=== PATIENT | male | born 1960 | race Asian ===

== ENCOUNTER 2023-04-14 08:31 | Outpatient (AMB) | payer OTHER, SELFPAY ==
--- NOTE | 2023-04-14 08:35 | MHC.PC.OV ---
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 Intake Note: pt is here to establish care, requesting physical exam [place] Bottom Maker Required: No Accompanied by: Self / Same As Patient Allergies No Known Allergies Allergy (Verified 04/14/23 08:53) Medication List - Last Reconciled 04/14/23 by KURT Mena No Known Home Meds Tobacco use date assessed: 04/14/23 Fall risk assessment: No Falls in past year Last assessed Fall Risk: 04/14/23 Dental Screening Dental Screen Date: 04/14/23 Did you have a dental visit in the last 12 months?: No Did you have a dental problem in the last 6 months where you did not have access to dental care?: No Was dental information given to patient?: Patient declined HPI HPI Comments History of Present Illness Details Patient is a 62-year-old male here to establish care. The patient has no significant past medical history but he has not seen a primary care physician over 15 years. Will obtain patient's immunization status. Patient is due for colonoscopy, will refer. Will draw fasting labs. [facility] Surgical History No pertinent past surgical history Family History Mother No problems noted. Father No problems noted. Social History Housing: House Alcohol intake: current Alcohol intake frequency: does not drink Patient Tobacco Use Status: Never used Tobacco e-Cigarette/Vaping Use: Never Used Use of substances other than those prescribed or required for medical reasons: No service: No Current occupational status: unemployed Cognitive needs: No Hearing needs: No Vision needs: Yes Questionnaire PHQ-9 Over the last 2 weeks, how often have you been bothered by any of the following problems? 1. Little interest or pleasure in doing things: not at all 2. Feeling down, depressed, or hopeless: not at all 3. Trouble falling or staying asleep, or sleeping too much: not at all 4. Feeling tired or having little energy: not at all 5. Poor appetite or overeating: not at all 6. Feeling bad about yourself - or that you are a failure or have let yourself or your family down: not at all 7. Trouble concentrating on things, such as reading the newspaper or watching television: not at all 8. Moving or speaking so slowly that other people could have noticed. Or the opposite - being so fidgety or restless that you have been moving around a lot more than usual: not at all 9. Thoughts that you would be better off or of hurting yourself in some way: not at all Total score: 0 Depression Screening Interpretation: Negative Depression Screening Done: Yes 26621 - PHQ-9 Billing: Yes Source: Developed by Drs. Mark Greenfield, Marely Hunter, Víctor Alcantar and colleagues, with an educational anatoliy from [employer]. Thrive Questionnaire Date Thrive assessed: 04/14/23 I am a: Patient What is your living situation today?: I have a steady place to live Within the past 12 months, did the food you bought not last and you didn't have the money to get more?: Never true Within the past 12 months, did you worry whether your food would run out before you got money to buy more?: Never true Do you have trouble paying for medicines?: No Do you have trouble getting transportation to medical appointments?: No Do you have trouble paying your heating and electricity bill?: No Do you have trouble taking care of your child, family member or friend?: No Do you have trouble with day-to-day activities such as bathing, preparing meals, shopping, managing finances, etc.?: No Are you currently unemployed and looking for a job?: No Are you interested in more education?: No Please select the resources that you would like help with: None Currently or been in a relationship where the following occur: no concerns reported THRIVE Score: 0 AUDIT C Alcohol Use Questionnaire (AUDIT-C) 1. How often do you have a drink containing alcohol?: Never 3. How often do you have six or more drinks on one occasion?: Never Total Score: 0 Score Reviewed/Action Taken: Yes TRISHA-7 AMB Questionnaire TRISHA-7 Date TRISHA - 7 assessed: 04/14/23 Feeling nervous, anxious, or on edge: 0 = Not at all Not being able to stop or control worryin = Not at all Worrying too much about different things: 0 = Not at all Trouble relaxin = Not at all Being so restless that it is hard to sit still: 0 = Not at all Becoming easily annoyed or irritable: 0 = Not at all Feeling afraid as if something awful might happen: 0 = Not at all Total TRISHA-7 score (0-4 normal; 5-9 mild; 10-14 moderate; 15-21 severe): 0 Source: Developed by Drs. Mark Greenfield, Marely Hunter, Víctor Alcantar and colleagues, with an educational anatoliy from [employer]. TRISHA-7 Assessment Billing TRISHA-7 Assessment Tool: TRISHA-7 Assessment 58346 Review of Systems Const Details: Constitutional : No Weight loss, No Fever, No Chills, No Fatigue, No Malaise ENT/Mouth : No sore throat, No Rhinorrhea. Admits occasional difficultly swallowing. Eyes: No Eye Pain, No Swelling, No Redness Cardiovascular : No Chest Pain, No SOB, No Dyspnea on Exertion, No Orthopnea, No Edema, No Palpitations Respiratory : No Cough, No Sputum, No Wheezing Gastrointestinal : No Nausea, No Vomiting, No Diarrhea, No Constipation, No abdominal Pain, No Hematochezia, No Melena Genitourinary : No Dysuria, No Urinary Frequency, No Hematuria, Musculoskeletal : No joint pain, No Myalgias, No Joint Swelling Skin : No Skin Lesions, No rash, Admits sking looks more yellow than usual. Neuro : No Weakness, No Numbness, No Dizziness, No Headache Psych : No Anxiety/Panic, No Depression Heme/Lymph: No Bruising, No Bleeding,No Lymphadenopathy Endocrine : No Polyuria, No Polydipsia All other systems reviewed and are negative Physical exam (Primary Care) Vital Signs: Last Vital Signs Pulse 67 04/14/23 08:41 BP 106/62 04/14/23 08:41 Pulse Ox 98 04/14/23 08:41 Oxygen Delivery Method Room Air 04/14/23 08:41 BMI result Body Mass Index 23.3 Tobacco/Smoking Status: Tobacco use Status Tobacco use date assessed 04/14/23 04/14/23 08:36 Patient Tobacco Use Status Never used Tobacco 04/14/23 08:47 e-Cigarette/Vaping Use Never Used 04/14/23 08:47 PHQ-9: PHQ-9 Score PHQ-9: Total score 0 04/14/23 09:05 Depression Screening Interpretation: Negative Thrive Assessment: Date of Thrive Assessment Date Thrive assessed 04/14/23 04/14/23 08:50 Currently or been in a relationship where the following occur: no concerns reported Const Other: Appearance: Alert.? Oriented X3.? No acute distress.? Head: Normocephalic, atraumatic, Eyes: Pupils equal, round and reactive to light.? ENT: + Post nasal drip. TM intact and pearly oquendo. Neck: Normal inspection.? Neck supple.?Full ROM CVS: Normal heart rate and rhythm.? Pulses normal.?+ systolic murmur. Respiratory: No respiratory distress.? Breath sounds normal.? Abdomen: Soft and nontender.? Skin: Skin warm and dry.? Appears Jaundice.? Normal skin turgor.? Extremities: No lower extremity edema.? No calf ttp. 5/5 strength to bilateral upper and lower extremities Back: No midline tenderness, no C-spine tenderness, full range of motion, no CVA tenderness bilaterally Neuro: Oriented X 3.? No motor deficit.? No sensory deficit. CN 2-12 intact Assessment and Plan Assessment & Plan (1) Systolic murmur: Comment: Patient was in office EKG, will get referral to echocardiogram. Will follow-up with results and refer to Cardiology if needed. Patient has no symptoms at this time Code(s): R01.1 - Cardiac murmur, unspecified (2) Difficulty swallowing: Comment: Patient states that he occasionally has difficulty swallowing and it feels like food can get stuck in his throat. Will refer to GI for evaluation. Code(s): R13.10 - Dysphagia, unspecified Qualifiers: Dysphagia type: unspecified Qualified Code(s): R13.10 - Dysphagia, unspecified (3) Onychomycosis: Comment: Will give patient topical fungal cream. Patient will follow-up if no improvement. Code(s): B35.1 - Tinea unguium Plan: Take your medications as prescribed. If you were prescribed antibiotics today, it is important that you take your medication to their entirety, do not skip any doses, do not finish them early. Follow-up with your primary care provider this week. Return to the emergency department with new or worsening symptoms. Such as fevers, chills, chest pain, shortness of breath, nausea, vomiting, dizziness, headache, vision changes, lethargy In case of emergency call 911 (4) Jaundice: Code(s): R17 - Unspecified jaundice (5) Right bundle branch block: Comment: EKG in office had right bundle branch block. 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 Code(s): I45.10 - Unspecified right bundle-branch block Plan Patient will follow-up with physical exam Orders: Orders Lipid Panel Today Z13.220 - Encounter for screening for lipoid disorders Vitamin B6 Today Z13.21 - Encounter for screening for nutritional disorder Hemoglobin A1c Today Z13.1 - Encounter for screening for diabetes mellitus Hepatitis A,B,C Profile Today R17 - Unspecified jaundice Comprehensive Met. Panel Today Z91.89 - Other specified personal risk factors, not elsewhere classified Complete Blood Count Auto Diff Today Z13.0 - Encounter for screening for diseases of the blood and blood-forming organs and certain disorders involving the immune mechanism Vitamin D 25-OH (D2 and D3) Today Z13.21 - Encounter for screening for nutritional disorder Vitamin B12 Today Z13.21 - Encounter for screening for nutritional disorder UA CC w/rflx Micro + Cult Today Z13.89 - Encounter for screening for other disorder TSH reflex Free T4 Today Z13.29 - Encounter for screening for other suspected endocrine disorder PSA,Total (Free>4and<10) Today Z12.5 - Encounter for screening for malignant neoplasm of prostate AMB EKG-In Office Today R01.1 - Cardiac murmur, unspecified CA echo transthoracic complete Today R01.1 - Cardiac murmur, unspecified Referrals Gastroenterology Referral R13.10 - Dysphagia, unspecified, Z12.11 - Encounter for screening for malignant neoplasm of colon Cardiology Referral I45.10 - Unspecified right bundle-branch block Medications: New efinaconazole 10% 1 appl topical DAILY 4 mL 0RF 48 weeks fluticasone propionate 50 mcg/actuation (Allergy Relief (fluticasone)) administer into each nostril 2 sprays intranasal DAILY 16 grams 0RF Coding Level of Care Code New Pt Level 3 (54780) Diagnoses Systolic murmur R01.1 Dysphagia, unspecified type R13.10 Dysphagia type: unspecified Onychomycosis B35.1 Jaundice R17 Right bundle branch block I45.10 Additional Codes TRISHA-7 Assessment Billing - TRISHA-7 Assessment Tool: TRISHA-7 Assessment 72261 ([id number]) Time Spent (min) 35
[2023-04-14 08:41] VITALS: BP 106/62; PULSE 67; O2SAT 98; BMI 23.3
== END 2023-04-14 10:21 | disposition home or self-care (01) ==
PROVIDERS: PCP Nurse Practitioner Primary Care; Visit Provider Nurse Practitioner Primary Care
DX: R01.1 Cardiac murmur, unspecified (principal); R13.10 Dysphagia, unspecified; B35.1 Tinea unguium; R17 Unspecified jaundice; I45.10 Unspecified right bundle-branch block
CPT/HCPCS: 93000; 99204

== ENCOUNTER 2023-04-17 10:13 | Outpatient (REF) | payer OTHER, SELFPAY ==
[2023-04-17 11:47] LABS: MANUAL DIFF FLAG NO
[2023-04-17 11:59] LABS: Basophils Percent Auto 0.5 % (0-2); Eosinophils Percent Auto 0.6 % (0-4); Imm Gran Abs Auto 0.03 X10*3/uL (0.00-0.03); Imm Gran Pct Auto 0.5 % (0.0-0.4); Lymphocytes Percent Auto 31.3 % (20-40); Mean Corpuscular HGB Conc 25.5 g/dl (31.0-36.0); Mean Corpuscular Hemoglobin 16.1 pg (27.0-33.0); Mean Platelet Volume 9.2 fL (9.4-12.4); Monocytes Absolute Auto 0.5 X10*3/uL (0.1-1.2); Monocytes Percent Auto 7.9 % (2-11); NRBC Pct Auto 0.6 /100WBC (0.0-0.2); Neutrophils Absolute Auto 3.8 x10*3/uL (2.0-8.3); Neutrophils Percent Auto 59.2 % (45-73); Platelet Count 391 X10*3/uL (160-400); Red Blood Count 3.05 X10*6/uL (4.60-5.80); Red Cell Distribution Width 22.1 % (11.0-16.0); White Blood Count 6.4 X10*3/uL (4.8-10.8)
[2023-04-17 12:34] LABS: Alanine Aminotransferase 14 U/L (0-40); Alkaline Phosphatase 47 U/L (39-117); Anion Gap 11 (12-20); Aspartate Amino Transferase 14 U/L (5-37); Bilirubin Total 0.4 mg/dL (0.0-1.0); Blood Urea Nitrogen 16 mg/dL (9-16); Calcium 8.8 mg/dL (8.4-10.2); Carbon Dioxide 24 mmol/L (22-29); Chloride 107 mmol/L (96-108); Cholesterol 116 mg/dL (<200); Estimated Glomerular Filt Rate > 60; Glucose Random 93 mg/dL (60-115); HDL Cholesterol 43 mg/dL (>40); LDL Cholesterol Calculated 67 mg/dL (<100); Potassium 4.1 mmol/L (3.3-5.1); Sodium 138 mmol/L (135-145); Total Protein 7.9 g/dL (6.5-8.0); Triglycerides 34 mg/dL (<150)
[2023-04-17 12:37] LABS: TSH reflex Free T4 1.22 uIU/mL (0.32-4.0)
[2023-04-17 12:38] LABS: Hematocrit 19.2 % (42.0-52.0); Hemoglobin 4.9 g/dl (14.0-18.0); PSA,Total (Free>4and<10) 5.66 ng/mL (0.00-4.00)
[2023-04-17 12:43] LABS: Vitamin B12 538 pg/mL (200-900)
[2023-04-17 13:36] LABS: Appearance Urine Clear; Color Urine Yellow; Glucose Urine UA Negative (Negative); Leukocyte Esterase Urine Negative (Negative); Nitrite Urine Negative (Negative); PH 5.5 (5.0-9.0); Urine Blood Negative (Negative); Urine Ketones Negative (Negative); Urine Protein Negative (Neg-Trace)
[2023-04-19 08:59] LABS: HBsAGNum1 0.38 S/CO (0.00-0.99); Hepatitis A Antibody IgM 0.36 Index (0-0.79); Hepatitis B Surface Antigen Negative (Negative); ~HepC Num1 0.14 S/CO (0.00-0.79); ~Hepatitis A Antibody IgM Nonreactive (Nonreactive); ~Hepatitis B Surface Antibody REACTIVE (Nonreactive); ~Hepatitis C Antibody Nonreactive (Nonreactive)
[2023-04-19 09:50] LABS: HBc Num2 4.14 S/CO
[2023-04-19 09:51] LABS: HBc Num3 3.96 S/CO; Hepatitis B Core Antibody Reactive (Nonreactive)
[2023-04-19 10:28] LABS: Free Prostate Spec Ag 0.7 ng/mL; Percent Free Prostate Spec Ag 11 % (calc) (>25); Prostate Specific Ag Total 6.6 ng/mL (< OR = 4.0)
[2023-04-21 12:18] LABS: Vitamin D 25-OH, D2 <4 ng/mL; Vitamin D 25-OH, D3 11 ng/mL; Vitamin D 25-OH, Total 11 ng/mL (30-100)
[2023-04-21 14:34] LABS: Vitamin B6 12.1 ng/mL (2.1-21.7)
== END 2023-04-17 10:14 | disposition home or self-care (01) ==
LOC: HO.HMGCLDS 10:13
PROVIDERS: PCP Nurse Practitioner Primary Care; Visit Provider Nurse Practitioner Primary Care
DX: Z13.0 Encounter for screening for diseases of the blood and blood-forming organs and certain disorders involving the immune mechanism (principal); Z13.21 Encounter for screening for nutritional disorder; Z12.5 Encounter for screening for malignant neoplasm of prostate; Z13.220 Encounter for screening for lipoid disorders; Z13.89 Encounter for screening for other disorder; Z13.29 Encounter for screening for other suspected endocrine disorder; R17 Unspecified jaundice; Z91.89 Other specified personal risk factors, not elsewhere classified
CPT/HCPCS: 36415; 80053; 80061; 81003; 82306; 82607; 83036; 84153; 84154; 84207; 84443; 85025; 86704; 86706; 86709; 86803; 87340

== ENCOUNTER 2023-04-18 12:43 | Inpatient (IN) | payer OTHER, SELFPAY ==
[2023-04-18] VITALS (12 sets, daily range): BP systolic 115–138; BP diastolic 48–71; PULSE 65–127; RESP 16–24; TEMP 36.3–37.2; O2SAT 99–100; BMI 20.5
--- NOTE | ~2023-04-18 | CT_ITS ---
EXAMINATION: CT CHEST WITH CONTRAST CLINICAL INFORMATION: Anemia and dysphagia COMPARISON: None available. TECHNIQUE: Multidetector volumetric CT imaging of the chest was obtained after the administration of 85 mL of Omnipaque 350 intravenous contrast without immediate adverse reactions. Axial MIP volume rendering provided. Sagittal and coronal reformatted images were obtained. This CT examination was performed using dose optimization techniques as appropriate, variously including the following: *Automated exposure control *Adjustment of mA and/or kV according to patient size (this includes techniques or standardized protocols for targeted exams where dose is matched to indication/reason for exam; i.e. extremities or head) *Use of iterative reconstruction technique DLP: 187 mGy-cm FINDINGS: LUNGS: Limited due to motion artifact. Subsegmental atelectasis in the lingula and left lower lobe. MEDIASTINUM: Enlarged heart. Mild coronary artery calcification. Small pericardial effusion. No enlarged hilar or mediastinal lymph nodes. The esophagus is normal-appearing. PLEURA: There is no pleural effusion. No pleural mass or thickening. AXILLA: No lymphadenopathy. OSSEOUS STRUCTURES: Degenerative changes of the spine. CT/CT chest w IV con IMPRESSION: Limited exam due to respiratory motion artifact. Enlarged heart and small pericardial effusion. Subsegmental atelectasis at the left lung base. Normal-appearing esophagus. Fleischner guidelines were followed.
--- NOTE | ~2023-04-18 | CT_ITS ---
EXAMINATION: CT ABDOMEN AND PELVIS WITH CONTRAST CLINICAL INFORMATION: Anemia. Concern for gastric or other mass. COMPARISON: None available. TECHNIQUE: Multidetector volumetric images were obtained from the superior aspect of the liver through the pubic symphysis following administration 85 mL of Omnipaque 350 intravenous contrast. Sagittal and coronal reformatted images were obtained on the technologist's workstation. Oral contrast: Yes This CT examination was performed using dose optimization techniques as appropriate, variously including the following: *Automated exposure control *Adjustment of mA and/or kV according to patient size (this includes techniques or standardized protocols for targeted exams where dose is matched to indication/reason for exam; i.e. extremities or head) *Use of iterative reconstruction technique DLP: 390 mGy-cm FINDINGS: LUNG BASES: The visualized lung bases are unremarkable. LIVER, GALLBLADDER, AND BILIARY TREE: The liver is normal in size, shape, and attenuation. There is an peripherally enhancing lesion in the posterior segment of the right lobe liver measuring 5 cm. Appearance is questionable hemangioma there are small subcentimeter low-attenuation liver lesions too small to definitively characterize but may represent small cysts. The gallbladder is contracted. There is no biliary duct dilatation. PANCREAS: Unremarkable. SPLEEN: Unremarkable. ADRENAL GLANDS: Unremarkable. KIDNEYS AND URETERS: The kidneys are normal in size, shape, and attenuation. No hydronephrosis, hydroureter, or calculi seen. Left renal cysts. No imaging follow-up recommended. No perinephric stranding. BLADDER: Prostate gland protrudes into the base of the bladder. Bladder otherwise unremarkable. GASTROINTESTINAL TRACT: Stool throughout the colon suggestive of mild constipation. The small and large bowel are otherwise unremarkable. The appendix is normal. ABDOMINAL WALL: No significant hernia is appreciated. LYMPH NODES: Normal. VASCULAR: Normal PELVIC VISCERA: Slightly enlarged prostate gland that protrudes into the base of bladder. OSSEOUS STRUCTURES: Degenerative changes spine. CT/CT abdomen pelvis w IV con IMPRESSION: Mild constipation. 5 cm liver lesion, question representing a hemangioma. Follow-up liver MRI recommended. Slightly enlarged prostate gland that protrudes into the base of the bladder. Fleischner guidelines were followed.
--- NOTE | 2023-04-18 13:12 | PC.NURSE ---
Patient taken from waiting room d/t call from OP labs regarding low lab values. Patient placed on stretcher, tele leads placed, IV and labs drawn. Patient primarily Cantonese speaking, currently speaking to doctor via virtual Cantonese paraprofessional interpreter.
[2023-04-18 13:15] LABS: Basophils Absolute Auto 0.1 X10*3/uL (0.0-0.2); Basophils Percent Auto 0.9 % (0-2); Eosinophils Absolute Auto 0.1 X10*3/uL (0.0-0.4); Eosinophils Percent Auto 1.1 % (0-4); Imm Gran Abs Auto 0.02 X10*3/uL (0.00-0.03); Imm Gran Pct Auto 0.4 % (0.0-0.4); Lymphocytes Absolute Auto 1.7 X10*3/uL (1.2-4.9); Lymphocytes Percent Auto 31.4 % (20-40); Mean Corpuscular HGB Conc 25.6 g/dl (31.0-36.0); Mean Corpuscular Hemoglobin 15.9 pg (27.0-33.0); Mean Platelet Volume 8.3 fL (9.4-12.4); Monocytes Absolute Auto 0.5 X10*3/uL (0.1-1.2); NRBC Pct Auto 0.7 /100WBC (0.0-0.2); Neutrophils Absolute Auto 3.1 x10*3/uL (2.0-8.3); Neutrophils Percent Auto 57.2 % (45-73); Platelet Count 356 X10*3/uL (160-400); Red Blood Count 2.77 X10*6/uL (4.60-5.80); Red Cell Distribution Width 22.1 % (11.0-16.0); White Blood Count 5.5 X10*3/uL (4.8-10.8)
[2023-04-18 13:18] LABS: Mean Corpuscular Volume 62.1 fL (80.0-98.0)
[2023-04-18 13:20] LABS: Hemoglobin 4.4 g/dl (14.0-18.0)
[2023-04-18 13:21] LABS: Hematocrit 17.2 % (42.0-52.0); INTERNATIONAL NORM RATIO 1.1 (0.9-1.1); Prothrombin Time 13.3 SEC (11.1-13.3)
--- NOTE | 2023-04-18 13:22 | ED_ITS ---
HPI - General Adult General Chief complaint: Recheck/Abnormal Lab/Rx Stated complaint: Abnormal Labs Sent by Dr Angulo Seen by Provider: 04/18/23 12:47 Source: patient, family () and information technology consultant (Cantonese Georgian) History of Present Illness HPI narrative: 62-year-old male who is referred in by his primary care doctor for abnormal labs. Patient states that he and his have worked in the [employer] business for proximally 7 years here in [place], he does not have any primary care doctor until recently, denies any prescription medications/alcohol/smoking history and denies any cough or night sweats but states he has had some unintentional weight loss and denies any melena/hematochezia and has never had a colonoscopy. Patient reports that for the past 6 months he has had increasing difficulty with swallowing for solid foods but this is not an issue with soft foods or liquids at this time. Patient denies any early satiety/muscle aches/bone aches and he denies any shortness of breath but states he has had some dizziness. He denies any abdominal pain at this time. Related Data Home Medications Medication Instructions Recorded Confirmed No Known Home Meds 04/18/23 04/18/23 Allergies Allergy/AdvReac Type Severity Reaction Status Date / Time No Known Allergies Allergy Verified 04/14/23 08:53 Review of Systems 2 Review of Systems: Pertinent positives and negatives as stated in HPI COUNTS INCLUDE 234 BEDS AT THE [facility] Past Medical History Source: nursing notes reviewed Medical History (Updated 04/18/23 @ 16:13 by Freda Jones MD) No pertinent past medical history Surgical History No pertinent past surgical history Family History Family History Mother No problems noted. Father No problems noted. Social History Social History Housing: House Alcohol intake: current Alcohol intake frequency: does not drink Patient Tobacco Use Status: Never used Tobacco Smoked in Last 30 Days: No e-Cigarette/Vaping Use: Never Used Use of substances other than those prescribed or required for medical reasons: No Advance Directives: No Advance Directives Information Provided: Yes service: No Current occupational status: unemployed Cognitive needs: No Hearing needs: No Vision needs: Yes Physical Exam ED Vital Signs: Vital Signs - 24 hr 04/18/23 13:08 04/18/23 13:27 04/18/23 14:26 Temperature 98.3 F 97.7 F Pulse Rate 89 92 97 Respiratory Rate 24 H 16 16 Blood Pressure 134/48 L 135/71 Pulse Oximetry 100 100 Oxygen Delivery Method Room Air Room Air 04/18/23 14:42 Temperature 97.4 F Pulse Rate 102 H Respiratory Rate 24 H Blood Pressure 138/71 Pulse Oximetry Oxygen Delivery Method BMI result Body Mass Index 20.5 VITAL SIGNS: Reviewed. GENERAL: Well developed, well nourished, in no acute distress. HEAD: Normocephalic/atraumatic EYES: PERRLA, EOMI, pale conjunctiva EARS: Ext canals without abnormality NOSE: Nares patent bilateral OROPHARYNX: no oral lesions noted, posterior pharynx clear NECK: Supple, no adenopathy LUNGS: Normal breath sounds. No adventitious sounds or accessory muscle use. SpO2<100> CARDIOVASCULAR: Regular rate and rhythm without noted murmurs ABDOMEN: Soft, non-tender, non-distended with bowel sounds. Anorectal: There are no masses/tags/fissures, scant stool in the rectal vault, no overt enlarged prostate noted and no anorectal masses appreciated, good rectal tone MUSCULOSKELETAL: No tenderness, deformities, or effusions noted on gross inspection. EXTREMITIES: No cyanosis, clubbing or edema. SKIN: Inspection of the skin reveals no rashes, +pallor NEUROLOGIC: Alert and oriented x 4. Strength and sensation to light touch were grossly intact x 4. Medications Administered Discontinued Medications Generic Name Dose Route Start Last Admin Trade Name Freq PRN Reason Stop Dose Admin Sodium Chloride 100 mls @ 100 mls/hr 04/18/23 12:48 04/18/23 14:49 Ns IV 04/18/23 13:47 100 mls/hr ONCE ONE Administration Iohexol 85 ml 04/18/23 14:20 04/18/23 14:20 Iohexol 350 Mg/Ml 100 Ml Infus..Btl IV 04/18/23 14:21 85 ml ONCE ONE Administration Medical Decision Making Medical Decision Making MDM Narrative: 62-year-old male with history and clinical presentation, DDX: Although no family history GI cancers, given the degree of anemia that patient is presenting with with associated dizziness as well as weight loss and recent dysphagia raising concerns for possible gastro Ca/esophageal. Reviewed all investigations and hematologic indices negative for leukocytosis or left shift there is a significant microcytic anemia and no thrombocytopenia. Coagulation studies are within normal limits. Chemistries indices do not demonstrates an BEVERLY or electrolyte/liver enzyme derangements. Guaiac negative for stool. On review of patient's outpatient lab work he does have hepatitis series pending from 04/17/2023. CT of the chest significant for small pericardial effusion and no grossly identifiable esophageal pathology. CT scan of the abdomen pelvis shows mild constipation with a 5 cm liver lesion that radiology feels is consistent with likely hemangioma and also identified enlarged prostate protruding into the base of the bladder. These findings were communicated with the inpatient hospitalist team. 1341: I discussed this case with inpatient hospitalist who accepts admission. Differential Diagnosis Differential Diagnoses: The differential diagnosis associated with the presentation includes Please see the discussion above Admission/Observation Consideration of admission/observation: Escalation of care including admission/observation considered Please see the discussion above Consult Healthcare Provider Management of the patient was discussed with: Hospitalist Please see the discussion above Lab Data MDM Lab Attestation statement: I reviewed the patient's lab results. Please see the discussion above 04/18/23 13:06 04/18/23 13:06 Labs: Lab Results 04/18/23 04/18/23 Range/Units 13:06 13:21 WBC 5.5 (4.8-10.8) X10*3/uL RBC 2.77 L (4.60-5.80) X10*6/uL Hgb 4.4 L* (14.0-18.0) g/dl Hct 17.2 L* (42.0-52.0) % MCV 62.1 L (80.0-98.0) fL MCH 15.9 L (27.0-33.0) pg MCHC 25.6 L (31.0-36.0) g/dl RDW 22.1 H (11.0-16.0) % Plt Count 356 (160-400) X10*3/uL MPV 8.3 L (9.4-12.4) fL Immature Gran % (Auto) 0.4 (0.0-0.4) % Neut % (Auto) 57.2 (45-73) % Lymph % (Auto) 31.4 (20-40) % Dare % (Auto) 9.0 (2-11) % Eos % (Auto) 1.1 (0-4) % Baso % (Auto) 0.9 (0-2) % Lymph # (Auto) 1.7 (1.2-4.9) X10*3/uL Dare # (Auto) 0.5 (0.1-1.2) X10*3/uL Eos # (Auto) 0.1 (0.0-0.4) X10*3/uL Baso # (Auto) 0.1 (0.0-0.2) X10*3/uL Abs Immat Gran (auto) 0.02 (0.00-0.03) X10*3/uL Absolute Neuts (auto) 3.1 (2.0-8.3) x10*3/uL Absolute Nucleated RBC 0.040 H (0.0-0.012) X10*3/uL Nucleated RBC % (auto) 0.7 H (0.0-0.2) /100WBC Smear Tech's Comments VERIFIED PT 13.3 (11.1-13.3) SEC INR 1.1 (0.9-1.1) Sodium 139 (135-145) mmol/L Potassium 4.4 (3.3-5.1) mmol/L Chloride 105 (96-108) mmol/L Carbon Dioxide 26 (22-29) mmol/L Anion Gap 12 (12-20) BUN 19 H (9-16) mg/dL Creatinine 1.04 (0.5-1.4) mg/dL Estim Creat Clear Calc 62.1 Estimated GFR > 60 Random Glucose 96 (60-115) mg/dL Calcium 8.5 (8.4-10.2) mg/dL Iron 15 L (45-160) mcg/dL TIBC 337 (228-428) mcg/dL % Saturation 4 L (15-50) % Unsat Iron Binding 322 ug/dL Ferritin 2 L (20-250) ng/mL Total Bilirubin 0.3 (0.0-1.0) mg/dL AST 23 (5-37) U/L ALT 13 (0-40) U/L Alkaline Phosphatase 42 (39-117) U/L Total Protein 7.6 (6.5-8.0) g/dL Albumin 3.8 (3.5-5.0) g/dL Stool Occult Blood NEGATIVE (NEGATIVE) Blood Type A Positive Antibody Screen NEGATIVE Crossmatch See Detail Radiology Impression Discussion of test interpretation with radiology: I have reviewed the radiologist's reading. Radiologist Impression: Please see the discussion above External Record Review External record reviewed: Office record, Outpatient record and Prior outpatient labs Critical Care Time Critical Care Time Critical Care Time: Yes Total Critical Care Time: 60 Attestation: I personally attest to this time spent taking care of the patient. Discharge Plan Discharge Clinical Impression: Severe anemia, Dysphagia, Unintentional weight loss Patient Disposition: Admitted As Inpatient
[2023-04-18 13:27] LABS: OBS Int Ctl Valid YES; OBS1 NEGATIVE (NEGATIVE)
[2023-04-18 13:32] LABS: MANUAL DIFF FLAG SCAN
[2023-04-18 13:33] LABS: SLIDE REVIEW VERIFIED
[2023-04-18 13:35] LABS: Alanine Aminotransferase 13 U/L (0-40); Albumin Level 3.8 g/dL (3.5-5.0); Alkaline Phosphatase 42 U/L (39-117); Anion Gap 12 (12-20); Aspartate Amino Transferase 23 U/L (5-37); Bilirubin Total 0.3 mg/dL (0.0-1.0); Blood Urea Nitrogen 19 mg/dL (9-16); Calcium 8.5 mg/dL (8.4-10.2); Carbon Dioxide 26 mmol/L (22-29); Chloride 105 mmol/L (96-108); Creatinine Clr Calc Pharmacy 62.1; Estimated Glomerular Filt Rate > 60; Glucose Random 96 mg/dL (60-115); Potassium 4.4 mmol/L (3.3-5.1); Sodium 139 mmol/L (135-145); Total Protein 7.6 g/dL (6.5-8.0)
--- NOTE | 2023-04-18 13:58 | P.HPHOSP_ITS ---
History of Present Illness Date of Service: 04/18/23 Review of Systems 2 Review of Systems: Gen: no fever Resp: no sob, no cough CV: no chest, no JENNINGS, no leg edema GI: No n/v, no abd pain Neuro: No confusion Yes all other systems are reviewed and are negative PMFSH Family History Mother No problems noted. Father No problems noted. Surgical History No pertinent past surgical history Social History Housing: House Alcohol intake: current Alcohol intake frequency: does not drink Patient Tobacco Use Status: Never used Tobacco Smoked in Last 30 Days: No e-Cigarette/Vaping Use: Never Used Use of substances other than those prescribed or required for medical reasons: No Advance Directives: No Advance Directives Information Provided: Yes service: No Current occupational status: unemployed Cognitive needs: No Hearing needs: No Vision needs: Yes Meds Allergies Allergy/AdvReac Type Severity Reaction Status Date / Time No Known Allergies Allergy Verified 04/14/23 08:53 Physical Exam 2 Vital Signs and Narrative: Vital Signs: Last Vital Signs Temp 98.3 F 04/18/23 13:27 Pulse 92 04/18/23 13:27 Resp 16 04/18/23 13:27 BP 134/48 L 04/18/23 13:08 Pulse Ox 100 04/18/23 13:27 O2 Del Method Room Air 04/18/23 13:27 BMI result Body Mass Index 20.5 Results Labs 04/18/23 13:06 04/18/23 13:06 Assessment and Plan (1) Difficulty swallowing: Qualifiers: Dysphagia type: unspecified Qualified Code(s): R13.10 - Dysphagia, unspecified Status: Acute (2) ABLA (acute blood loss anemia): Status: Acute Plan Acute blood loss anemia weight loss Dysphagia Quality Stroke Does the patient have a stroke diagnosis?: No VTE Prior VTE?: No VTE Risk Level:: Medical - moderate - high VTE Device Contraindication: N/A - Device Ordered VTE Drug Contraindication: Treatment Not Tolerated (gib, anemia)
[2023-04-18] MEDS: iohexoL 350 MG/ML 100 ML INFUS..BTL 85 ML IV (14:20)
--- NOTE | 2023-04-18 14:43 | PHA.MEDREC ---
Pharmacy Consult ? Medication Reconciliation Pharmacy has completed the medication reconciliation. spoke with patient through virtual dye range operator. He reported no medications from home. Family member reports this as well.
--- NOTE | 2023-04-18 14:55 | PM.IMHP ---
History of Present Illness Date of Service: 04/18/23 Attending physician on admission: [facility] Chief Complaint: dizziness, fatigue 62 year old male without any significant past medical history with poor outpt follow up presents to the office at the recommendation of PCP (seen 04/14 to reestablish care after 15 years) due to low blood counts. He reports he has been feeling weak and dizzy intermittently for about 3-4 years. Also reports rhinorrhea and congestion ongoing for several years. He has had intermittent dysphagia to solids only, denies globus sensation. Denies fevers, chills, abd pain, n/v/d, melena, hematochezia, urinary symptoms/hematuria, unintentional weight loss, sob, syncope, palpitations, chest pain. No changes in bowel habits or appetite. No anorexia. Has never undergone screening colonoscopy. Since arrival has been tachycardic in the low 100s-130, vitals otherwise stable. No leukocytosis. H/H 4.4/17.2%, MCV 62.1. Chest CT shows enlarged heart, small pericardial effusion, and subsegmental atelectasis with normal appearing esophagus. CT abd/pelvis shows 5cm liver lesion, likely hemangioma, follow up mri recommended and slightly enlarged prostate. In the ED tranfused 3 units PRBC. Review of Systems Review of Systems: General: No fevers, malaise, unintentional weight loss HEENT: No blurred vision, diplopia. No sore throat, nasal congestion, rhinorrhea, sinus pain, ear pain Cardiovascular: No chest pain, palpitations, or leg edema Respiratory: No shortness of breath, wheezing, cough GI: +dysphagia. No anorexia, abdominal pain, nausea, vomiting, diarrhea, constipation, melena, hematochezia : No dysuria, hematuria, increased urinary frequency, decreased urinary output MSK: No myalgia, back pain Neuro: No headaches, weakness, paresthesias. +lightheadedness Skin: No rashes or lesions [facility] Medical History (Updated 04/18/23 @ 16:13 by Freda Jones MD) No pertinent past medical history Family History Mother No problems noted. Father No problems noted. Surgical History No pertinent past surgical history Social History Housing: House Alcohol intake: current Alcohol intake frequency: does not drink Patient Tobacco Use Status: Never used Tobacco Smoked in Last 30 Days: No e-Cigarette/Vaping Use: Never Used Use of substances other than those prescribed or required for medical reasons: No Advance Directives: No Advance Directives Information Provided: Yes service: No Current occupational status: unemployed Cognitive needs: No Hearing needs: No Vision needs: Yes Meds Allergies Allergy/AdvReac Type Severity Reaction Status Date / Time No Known Allergies Allergy Verified 04/14/23 08:53 Home Medications Medication Instructions Recorded Confirmed Last Taken Type No Known Home Meds 04/18/23 04/18/23 Unknown History Physical Exam Vital Signs and Narrative: Vital Signs: Last Vital Signs Temp 97.4 F 04/18/23 14:42 Pulse 102 H 04/18/23 14:42 Resp 24 H 04/18/23 14:42 BP 138/71 04/18/23 14:42 Pulse Ox 100 04/18/23 13:27 O2 Del Method Room Air 04/18/23 13:27 BMI result Body Mass Index 20.5 Constitutional - Awake and Alert, No apparent distress Eyes - PERRLA, EOMI Cardiovascular - S1S2, systolic murmur, RRR, No edema Respiratory - Normal lung expansion, Normal respiratory effort, No respiratory distress, CTA bilaterally Gastrointestinal - NT / ND; +BS; No rebound or guarding Extremities - no calf tenderness bilaterally, no swelling Skin - Warm/Dry. venous stasis dermatitis ble R>L Neurological - Alert & oriented x3 Psychological - Appropriate affect Results Labs 04/18/23 13:06 04/18/23 13:06 Labs: Laboratory Results - last 24 hr 04/18/23 04/18/23 13:06 13:21 MCV 62.1 L MCH 15.9 L MCHC 25.6 L RDW 22.1 H Plt Count 356 MPV 8.3 L Immature Gran % (Auto) 0.4 Neut % (Auto) 57.2 Lymph % (Auto) 31.4 [place] % (Auto) 9.0 Eos % (Auto) 1.1 Baso % (Auto) 0.9 Lymph # (Auto) 1.7 [place] # (Auto) 0.5 Eos # (Auto) 0.1 Baso # (Auto) 0.1 Abs Immat Gran (auto) 0.02 Absolute Neuts (auto) 3.1 Absolute Nucleated RBC 0.040 H Nucleated RBC % (auto) 0.7 H Smear Tech's Comments VERIFIED PT 13.3 INR 1.1 Anion Gap 12 Estim Creat Clear Calc 62.1 Estimated GFR > 60 Random Glucose 96 Calcium 8.5 Total Bilirubin 0.3 AST 23 ALT 13 Alkaline Phosphatase 42 Total Protein 7.6 Albumin 3.8 Stool Occult Blood NEGATIVE Blood Type A Positive Antibody Screen NEGATIVE Crossmatch See Detail Assessment and Plan (1) ABLA (acute blood loss anemia): Status: Acute Plan 62 year old male without any significant past medical history with poor outpt follow up presents to the office at the recommendation of PCP (seen 04/14 to reestablish care after 15 years) due to low blood counts. He will be admitted for severe anemia due #Acute on chronic microcytic anemia -etiology unclear, ?GIB vs malignancy -H/H 4.4/17.2%, MCV 62.1 -Iron studies pending -IV ppi -GI consult -clear liquid diet, npo after midnight -tranfused 3 units in ED -Monitor on tele -follow cbc #Systolic murmur -likely related to severe anemia -consider echo -monitor on tele #Liver hemangioma -5cm liver lesion, likely hemangioma -gi consult, likely outpt follow up for mri DVt prophylaxis- scp's full code pt requires inpt stay at least 2 midnights for management of acute on chronic severe symptomatic anemia requiring blood transfusion, expert consultation, cardiac monitoring, and close monitoring of blood counts while etiology of anemia is investigated Quality Stroke Does the patient have a stroke diagnosis?: No VTE Prior VTE?: No VTE Risk Level:: Medical - moderate - high VTE Device Contraindication: N/A - Device Ordered VTE Drug Contraindication: Treatment Not Indicated
[2023-04-18 15:39] LABS: Iron 15 mcg/dL (45-160); Percent Iron Saturation 4 % (15-50); Total Iron Binding Capacity 337 mcg/dL (228-428); Unsaturated Iron Binding 322 ug/dL
[2023-04-18 15:49] LABS: Ferritin 2 ng/mL (20-250)
--- NOTE | 2023-04-18 16:47 | PC.NURSE ---
2nd unit of blood started, patient resting quietly on stretcher at this time.
[2023-04-18] MEDS: Pantoprazole Sodium 40 MG/10 ML VIAL IVPUSH (18:12)
[2023-04-19 00:09] VITALS: BP 134/61; PULSE 64; RESP 16; TEMP 37.2
[2023-04-19 00:24] VITALS: BP 117/59; PULSE 61; PULSE 63; RESP 18; TEMP 37.1; TEMP 37.2; O2SAT 100
[2023-04-19 06:09] VITALS: BP 103/56; PULSE 69; RESP 14; TEMP 36.9; O2SAT 98
[2023-04-19] MEDS: Pantoprazole Sodium 40 MG/10 ML VIAL IVPUSH ×2 (06:10→18:17)
[2023-04-19 06:24] LABS: MANUAL DIFF FLAG NO
[2023-04-19 06:29] LABS: Basophils Absolute Auto 0.1 X10*3/uL (0.0-0.2); Basophils Percent Auto 0.9 % (0-2); Eosinophils Absolute Auto 0.2 X10*3/uL (0.0-0.4); Eosinophils Percent Auto 2.2 % (0-4); Hematocrit 29.2 % (42.0-52.0); Hemoglobin 8.5 g/dl (14.0-18.0); Imm Gran Abs Auto 0.03 X10*3/uL (0.00-0.03); Imm Gran Pct Auto 0.4 % (0.0-0.4); Lymphocytes Absolute Auto 1.4 X10*3/uL (1.2-4.9); Lymphocytes Percent Auto 20.8 % (20-40); Mean Corpuscular HGB Conc 29.1 g/dl (31.0-36.0); Mean Corpuscular Volume 68.7 fL (80.0-98.0); Mean Platelet Volume 8.6 fL (9.4-12.4); Monocytes Absolute Auto 0.6 X10*3/uL (0.1-1.2); Monocytes Percent Auto 8.4 % (2-11); NRBC Pct Auto 0.3 /100WBC (0.0-0.2); Neutrophils Absolute Auto 4.6 x10*3/uL (2.0-8.3); Neutrophils Percent Auto 67.3 % (45-73); Platelet Count 367 X10*3/uL (160-400); Red Blood Count 4.25 X10*6/uL (4.60-5.80); Red Cell Distribution Width 26.5 % (11.0-16.0); White Blood Count 6.8 X10*3/uL (4.8-10.8)
[2023-04-19 06:56] LABS: Alanine Aminotransferase 12 U/L (0-40); Albumin Level 3.6 g/dL (3.5-5.0); Alkaline Phosphatase 49 U/L (39-117); Anion Gap 11 (12-20); Aspartate Amino Transferase 14 U/L (5-37); Bilirubin Total 1.1 mg/dL (0.0-1.0); Blood Urea Nitrogen 11 mg/dL (9-16); Calcium 8.6 mg/dL (8.4-10.2); Carbon Dioxide 24 mmol/L (22-29); Chloride 108 mmol/L (96-108); Creatinine Clr Calc Pharmacy 82.8; Estimated Glomerular Filt Rate > 60; Glucose Random 86 mg/dL (60-115); Potassium 3.6 mmol/L (3.3-5.1); Sodium 139 mmol/L (135-145); Total Protein 7.4 g/dL (6.5-8.0)
--- NOTE | 2023-04-19 07:09 | PM.GICN ---
History of Present Illness Data of Consult Service Date: 04/19/23 Primary Care Provider: KURT Mena HPI 62 year old Cantonese speaking male seen at [facility] on 04/18/23 at the recommendation of PCP (seen 04/14 to reestablish care after 15 years) for severe anemia. History obtained with the help of a telephone Cantonese disability liaison officer, Valerie # [phone] Pt reported he has been feeling weak and dizzy intermittently for about 3-4 years. Also reports rhinorrhea and congestion ongoing for several years. Pt complained of mild heartburn and intermittent dysphagia to solids and no problems drinking liquids. Pt notes gas and bloating and denies fevers, chills, abd pain, n/v/d, melena, hematochezia, urinary symptoms/hematuria, unintentional weight loss, sob, syncope, palpitations, chest pain or changes in bowel habits or appetite. No anorexia. Pt denied having a screening colonoscopy in the past. Pt denies smoking or ETOH abuse. He reports a negative family history of colon polyps or GI malignancy. In the ED pt noted to have tachycardia in the low 100s-130, vitals otherwise stable. Labs showed no leukocytosis. H/H 4.4/17.2%, MCV 62.1. Chest CT shows enlarged heart, small pericardial effusion, and subsegmental atelectasis with normal appearing esophagus. CT abd/pelvis shows 5cm liver lesion, likely hemangioma, Follow up mri recommended and slightly enlarged prostate. In the ED tranfused 3 units PRBC. Repeat H & H post transfusion was 8.5 and 29.2 Review of Systems Review of Systems: General: No fevers, malaise, unintentional weight loss HEENT: No blurred vision, diplopia. No sore throat, nasal congestion, rhinorrhea, sinus pain, ear pain Cardiovascular: No chest pain, palpitations, or leg edema Respiratory: No shortness of breath, wheezing, cough GI: +dysphagia. No anorexia, abdominal pain, nausea, vomiting, diarrhea, constipation, melena, hematochezia : No dysuria, hematuria, increased urinary frequency, decreased urinary output MSK: No myalgia, back pain Neuro: No headaches, weakness, paresthesias. +lightheadedness Skin: No rashes or lesions PMFSH Past Medical History Medical History No pertinent past medical history Family History Family History Mother No problems noted. Father No problems noted. Surgical History Surgical History No pertinent past surgical history Social History Social History Household Members: Spouse and Family Household Members Other:: 2 Housing: House Do you presently have visiting nurse or other home services: No Alcohol intake: current Alcohol intake frequency: does not drink Patient Tobacco Use Status: Never used Tobacco e-Cigarette/Vaping Use: Never Used service: No Current occupational status: unemployed Cognitive needs: No Hearing needs: No Vision needs: Yes Meds Allergies Allergy/AdvReac Type Severity Reaction Status Date / Time No Known Allergies Allergy Verified 04/14/23 08:53 Active Medications: Current Medications Acetaminophen (Acetaminophen 325 Mg Tablet) 650 mg PO Q6H PRN PRN Reason: Pain, Mild (Pain Scale 1-3) Ondansetron HCl (Ondansetron Hcl 4 Mg/2 Ml Vial) 4 mg IVPUSH Q8H PRN PRN Reason: Nausea and Vomiting Pantoprazole Sodium (Pantoprazole Sodium 40 Mg/10 Ml Vial) 40 mg IVPUSH BID@0630,1630 [facility] Last Admin: 04/19/23 06:10 Dose: 40 mg Senna (Sennosides 8.6 Mg Tablet) 17.2 mg PO BEDTIME PRN PRN Reason: Constipation Sodium Chloride (0.9 % Sodium Chloride Flush 3 Ml Syringe) 3 ml IVFLUSH QSHIFT [facility] Last Admin: 04/19/23 00:00 Dose: Not Given Physical Exam Vital Signs: Vital Signs: Last Vital Signs Temp 98.4 F 04/19/23 06:09 Pulse 69 04/19/23 06:09 Resp 14 04/19/23 06:09 BP 103/56 L 04/19/23 06:09 Pulse Ox 98 04/19/23 06:09 O2 Del Method Room Air 04/19/23 06:09 BMI result Body Mass Index 20.5 Const: Other: General alert oriented x3, resting comfortably in no acute distress. Neck no JVD. CVS regular rate rhythm, Respiratory lungs clear to auscultation, no respiratory distress, no wheeze, no rhonchi. Gastrointestinal abdomen soft, non tender, bowel sounds audible, no guarding , no rigidity. Extremities no edema. Neuro non focal Skin no rash Psych appropriate affect Results Labs 04/22/23 09:16 04/19/23 05:45 Labs: Short CBC 04/18/23 04/19/23 Range/Units 13:06 05:45 WBC 5.5 6.8 (4.8-10.8) X10*3/uL Hgb 4.4 L* 8.5 L D (14.0-18.0) g/dl Hct 17.2 L* 29.2 L D (42.0-52.0) % Plt Count 356 367 (160-400) X10*3/uL BMP 04/18/23 04/19/23 13:06 05:45 Sodium 139 139 Potassium 4.4 3.6 Chloride 105 108 Carbon Dioxide 26 24 BUN 19 H 11 Creatinine 1.04 0.78 Calcium 8.5 8.6 Liver Function 04/18/23 04/19/23 Range/Units 13:06 05:45 Total Bilirubin 0.3 1.1 H (0.0-1.0) mg/dL AST 23 14 (5-37) U/L ALT 13 12 (0-40) U/L Alkaline Phosphatase 42 49 (39-117) U/L Albumin 3.8 3.6 (3.5-5.0) g/dL Assessment and Plan (1) Dysphagia: Status: Acute (2) Iron deficiency anemia: Status: Acute Plan 62 year old Cantonese speaking male seen at [facility] on 04/18/23 at the recommendation of PCP (seen 04/14 to reestablish care after 15 years)for severe anemia. Pt reported he has been feeling weak and dizzy intermittently for about 3-4 years. Pt complained of mild heartburn and intermittent dysphagia to solids and no problems drinking liquids. Labs showed no leukocytosis. H/H 4.4/17.2%, MCV 62.1. In the ED tranfused 3 units PRBC. Repeat H & H post transfusion was 8.5 and 29.2 Severe iron-deficiency anemia and be related to upper GI (PUD, erosive esophagitis, UGI AVMs, GAVE or malignancy) or Lower GI (colon polyps or cancer, AVMs) blood loss. RECOMMENDATIONS: 1. Agree with IV PPI and antiemetics 2. Check CBC daily 3. Clear liquid diet and GoLYTELY prep today for EGD and colonoscopy tomorrow. Procedure and potential complications including bleeding, perforation, reaction to anesthetics an aspiration were reviewed with the patient with the help of a telephone Cantonese associate genetics professor. Patient would like to proceed. Procedures Date of Service Date of Service: 04/22/23
--- NOTE | 2023-04-19 09:56 | MHC.SLORD ---
Speech Language Pathology Order Status: Pt was made NPO at midnight. BDE on hold pending G.I. consult.
--- NOTE | 2023-04-19 12:20 | HO.PM.IMPN ---
Subjective Subjective Date of Service: 04/19/23 Interval History: Being followed for symptomatic anemia, denies headache, no dizziness, no lightheadedness, denies chest pain, no palpitation, seen by speech therapy and noted to have unremarkable bedside swallow speech therapy recommend continue with regular texture diet and thin liquids. Review of Systems All other system reviewed and negative. Physical Exam Vital Signs: Vital Signs: Last Vital Signs Temp 98.4 F 04/19/23 06:09 Pulse 69 04/19/23 06:09 Resp 14 04/19/23 06:09 BP 103/56 L 04/19/23 06:09 Pulse Ox 98 04/19/23 06:09 O2 Del Method Room Air 04/19/23 06:09 BMI result Body Mass Index 20.5 Const: Other: General alert oriented x3, resting comfortably in no acute distress. Neck no JVD. CVS regular rate rhythm, Respiratory lungs clear to auscultation, no respiratory distress, no wheeze, no rhonchi. Gastrointestinal abdomen soft, non tender, bowel sounds audible, no guarding , no rigidity. Extremities no edema. Neuro non focal Skin no rash Psych appropriate affect Objective Data Active Medications Acetaminophen (Acetaminophen 325 Mg Tablet) 650 mg PO Q6H PRN PRN Reason: Pain, Mild (Pain Scale 1-3) Ondansetron HCl (Ondansetron Hcl 4 Mg/2 Ml Vial) 4 mg IVPUSH Q8H PRN PRN Reason: Nausea and Vomiting Pantoprazole Sodium (Pantoprazole Sodium 40 Mg/10 Ml Vial) 40 mg IVPUSH BID@0630,1630 [facility] Last Admin: 04/19/23 06:10 Dose: 40 mg Documented By: HUGO Polyethylene Glycol/Electrolytes (Peg 3350/Na Sulf,Bicarb,Cl/Kcl 4,000 Ml Soln.Recon) 4,000 ml PO ONCE ONE Stop: 04/19/23 14:01 Senna (Sennosides 8.6 Mg Tablet) 17.2 mg PO BEDTIME PRN PRN Reason: Constipation Sodium Chloride (0.9 % Sodium Chloride Flush 3 Ml Syringe) 3 ml IVFLUSH QSHIFT [facility] Last Admin: 04/19/23 00:00 Dose: Not Given Documented By: HUGO Non-Admin Reason: IV Running Labs 04/19/23 05:45 04/19/23 05:45 Labs: Laboratory Results - last 24 hr 04/18/23 04/18/23 04/19/23 13:06 13:21 05:45 MCV 62.1 L 68.7 L D MCH 15.9 L 20.0 L MCHC 25.6 L 29.1 L RDW 22.1 H 26.5 H Plt Count 356 367 MPV 8.3 L 8.6 L Immature Gran % (Auto) 0.4 0.4 Neut % (Auto) 57.2 67.3 Lymph % (Auto) 31.4 20.8 [place] % (Auto) 9.0 8.4 Eos % (Auto) 1.1 2.2 Baso % (Auto) 0.9 0.9 Lymph # (Auto) 1.7 1.4 [place] # (Auto) 0.5 0.6 Eos # (Auto) 0.1 0.2 Baso # (Auto) 0.1 0.1 Abs Immat Gran (auto) 0.02 0.03 Absolute Neuts (auto) 3.1 4.6 Absolute Nucleated RBC 0.040 H 0.020 H Nucleated RBC % (auto) 0.7 H 0.3 H Smear Tech's Comments VERIFIED PT 13.3 INR 1.1 Anion Gap 12 11 L Estim Creat Clear Calc 62.1 82.8 Estimated GFR > 60 > 60 Random Glucose 96 86 Calcium 8.5 8.6 Iron 15 L TIBC 337 % Saturation 4 L Unsat Iron Binding 322 Ferritin 2 L Total Bilirubin 0.3 1.1 H AST 23 14 ALT 13 12 Alkaline Phosphatase 42 49 Total Protein 7.6 7.4 Albumin 3.8 3.6 Stool Occult Blood NEGATIVE Blood Type A Positive Antibody Screen NEGATIVE Crossmatch See Detail Assessment and Plan (1) Severe anemia: Status: Acute Plan 62 year old male without any significant past medical history with poor outpt follow up presents to the office at the recommendation of PCP (seen 04/14 to reestablish care after 15 years) due to low blood counts. He will be admitted for severe anemia due #Acute on chronic microcytic anemia -etiology unclear, occult GI bleed vs malignancy -stool guaiac negative, iron studies suggestive of iron deficiency Status post 3 units of packed RBC hematocrit improved from 17.2% to 29.[address] Guevara she recommend EGD and colonoscopy tomorrow -clear liquid diet,iv ppi, npo after midnight -follow cbc # dysphagia seen by speech therapy they recommend regular diet with thin liquids, follow upper endoscopy by GI form globus and outpatient MBSS study if symptoms persist. #Systolic murmur -likely related to severe anemia, patient asymptomatic outpatient follow-up #Liver hemangioma -5cm liver lesion, likely hemangioma, outpatient follow-up MRI as per GI recommendation DVt prophylaxis- scp's full code pt requires continued inpt stay for management of acute on chronic severe symptomatic anemia requiring blood transfusion, expert consultation, cardiac monitoring, and close monitoring of blood counts while etiology of anemia is investigated. Quality Stroke Does the patient have a stroke diagnosis?: No VTE Prior VTE?: No VTE Risk Level:: Medical - moderate - high VTE Device Contraindication: N/A - Device Ordered VTE Drug Contraindication: Treatment Not Indicated
--- NOTE | 2023-04-19 12:23 | MHC.CM.PN ---
Attempted to meet with patient in regards to discharge planning. Nursing care currently being provided. Will attempt to meet again. Continue to monitor for d/c needs.
[2023-04-19] MEDS: bisacodyL 5 MG TABLET.DR 10 MG PO (14:24)
--- NOTE | 2023-04-19 15:59 | MHC.SL.SWA ---
Speech Pathologist Impression: WFL Risk of Aspiration Due to: None Dysphasia Diet Status: Continue on regular texture diet Liquid Consistency and Strategies for Safe Swallow: Liquid Intake Recommendation: Thin Liquid Intake Strategies: Unrestricted Solid Food Consistency: Dietary Recommendations: Regular Additional Modifications to Solid Foods: Unremarkable bedside swallow exam. Oral and pharyngeal phases of swallow deemed WFL. Complete oral clearance and no overt s/s of aspiration with intake of liquids and solids. Patient is being worked up by [employer]I. [employer] VESSEL to f/u 1x to monitor. Oral Medication Intake: Whole with Liquid Please contact the pharmacy regarding appropriate crushable or liquid drug formulations that are available whenever modified delivery is recommended. Compensatory Strategies and Precautions to be Taken for Safe Swallow: Sitting Upright (90 deg) Small Bites and Sips Rate of Ingestion Change Supervision While Eating and Drinking for Safe Swallow: None Needed Swallowing Recommended Treatments: Recommendation for Speech: Modified Barium Swallow Study - Outpatient Comment: Should concerns persist, patient may benefit from MBSS for evaluation of globus. Frequency/Duration: 1 f/u to monitor [employer] Member Clinican/Clinical Fellow: No Supervisory Statement: I have reviewed and agree with the student/clinical fellow's documentation: N/A Speech Language Pathologist: Barbara Doty M.A., CCC-[employer]
--- NOTE | 2023-04-19 16:01 | MHC.SL.SWA ---
Addendum entered and electronically signed by Barbara Doty MA, CCC-CHEMICAL MILLING PROCESSOR 04/19/23 16:05: Per EMR, pt is on a clear liquid diet and will be NPO at midnight for procedure. Refer to CHEMICAL MILLING PROCESSOR recommendations when medically cleared to advance. Original Note: Speech Pathologist Impression: WFL Risk of Aspiration Due to: None Dysphasia Diet Status: Upgrade to regular/thin Liquid Consistency and Strategies for Safe Swallow: Liquid Intake Recommendation: Thin Liquid Intake Strategies: Unrestricted Solid Food Consistency: Dietary Recommendations: Regular Additional Modifications to Solid Foods: Unremarkable bedside swallow exam. Oral and pharyngeal phases of swallow deemed WFL. Complete oral clearance and no overt s/s of aspiration with intake of liquids and solids. Patient is being worked up by Venessa.I. CHEMICAL MILLING PROCESSOR to f/u 1x to monitor. Oral Medication Intake: Whole with Liquid Please contact the pharmacy regarding appropriate crushable or liquid drug formulations that are available whenever modified delivery is recommended. Compensatory Strategies and Precautions to be Taken for Safe Swallow: Sitting Upright (90 deg) Small Bites and Sips Rate of Ingestion Change Supervision While Eating and Drinking for Safe Swallow: None Needed Recommendation for Speech: Modified Barium Swallow Study - Outpatient Comment: Patient reports having intermittent difficulty swallowing solids. Clinical swallow eval unremarkable. Should concerns persist, patient may benefit from outpatient MBSS. Frequency/Duration: 1 f/u Date Range for Service Req: Timeline to reassess: Manager Packaging Clinican/Clinical Fellow: No Supervisory Statement: I have reviewed and agree with the student/clinical fellow's documentation: N/A Speech Language Pathologist: Barbara Doty M.A., CCC-CHEMICAL MILLING PROCESSOR
[2023-04-19 17:04] LABS: Glucose, Whole Blood 101 mg/dL (60-115)
[2023-04-19] MEDS: PEG 3350/Na Sulf,Bicarb,Cl/KCL 4,000 ML SOLN.RECON 4000 ML PO (18:23)
--- NOTE | 2023-04-19 18:35 | PC.NURSE ---
assumed care of pt at 1800. 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 pt a&o x4, pleasant, calm, and cooperative. pt educated on bowel prep. aware to drink cup of solution Q10 minutes. pt medicated per apr. 20G IV to LAC and 18G IV to R. both patent. pt currently resting quietly, awaiting bed assignment. endoscopy tomorrow AM. call contreras within reach. plan of care ongoing.
[2023-04-19 18:37] VITALS: BP 134/74; PULSE 73; RESP 20; TEMP 36.7; O2SAT 98
[2023-04-19 21:21] VITALS: BMI 20.5
[2023-04-19 23:01] VITALS: BP 131/79; PULSE 98; RESP 17; TEMP 36.6; O2SAT 97
[2023-04-20] VITALS (10 sets, daily range): BP systolic 96–148; BP diastolic 43–78; PULSE 60–87; RESP 15–20; TEMP 36.1–36.8; O2SAT 93–100; BMI 21.6
[2023-04-20] MEDS: Pantoprazole Sodium 40 MG/10 ML VIAL IVPUSH (05:30)
[2023-04-20] MEDS: 0.9 % Sodium Chloride Flush 3 ML SYRINGE IVFLUSH ×3 (05:30→15:34)
[2023-04-20 06:29] LABS: Hematocrit 29.8 % (42.0-52.0); Hemoglobin 8.6 g/dl (14.0-18.0); Mean Corpuscular HGB Conc 28.9 g/dl (31.0-36.0); Mean Corpuscular Hemoglobin 19.9 pg (27.0-33.0); Mean Platelet Volume 8.9 fL (9.4-12.4); Platelet Count 393 X10*3/uL (160-400); Red Blood Count 4.32 X10*6/uL (4.60-5.80); Red Cell Distribution Width 27.2 % (11.0-16.0); White Blood Count 7.5 X10*3/uL (4.8-10.8)
--- NOTE | 2023-04-20 09:09 | MHC.CM.PN ---
cm attempted to meet w/pt however pt not in room, cm to revisit.
--- NOTE | 2023-04-20 10:32 | MHC.SPEECHCO ---
Addendum entered and electronically signed by GUMARO Pantoja 04/20/23 15:23: Pt made clear liquids after procedure. Original Note: Pt NPO for procedure, off the floor this morning. Pt previously recommended Regular Solids and Thin Liquids.
--- NOTE | 2023-04-20 11:31 | MHC.CM.PN ---
EMR REVIEWED, PT ADMITTED W/ACUTE BLOOD LOSS ANEMIA/GI BLEED, PLAN FOR UPPER/LOWER ENDOSCOPY TODAY, CM MET W/PT VIA IPAD CABINETMAKER HELPER PT IS CANTONESE SPEAKING HOWEVER IS ABLE TO SPEAK/UNDERSTAND A LITTLE BURKINAN, PT REPORTS HE LIVES W/HIS , IS FULLY INDEP W/CARE, DENIES USE OF DME/HOME SERVICES, PT REPORTS HE WOULD LIKE TO COMPLETE A HCP AND WOULD LIKE TO NAME HIS HIS [facility] HOWEVER PT STATES PT'S 'S NAME IS PETE HAYES VIA CABINETMAKER HELPER AND NAME ON FILE IS EYAL HAYES, PT UNABLE TO CLARIFY AND GIVES VERBAL CONSENT FOR CM TO CONTACT TO CLARIFY AND VERIFY COVID VAX STATUS PT REPORTS HIS KNOWS. CM ATTMEPTED TO CONTACT PT'S AT NUMBER ON FILE HOWEVER #NOT IN SERVICE, CM WILL NEED TO REVISIT W/IPAD CABINETMAKER HELPER. PT UNABLE TO VERIFY NAME OF NEW PCP HOWEVER PER BRENNEN PATEL HAD ORDERED PREVIOUS LABS AND PT REPORTS HIS CAN CLARIFY.
--- NOTE | 2023-04-20 11:56 | MHC.CLN ---
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
--- NOTE | 2023-04-20 12:38 | MHC.CM.PN ---
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
--- NOTE | 2023-04-20 12:46 | P.CONAN_ITS ---
HPI - Anesthesia Eval Consult details Narrative: 62 yo male patient for EGD, Colonoscopy [facility] Active Problems Active Problems: All Active Problems (Updated 04/20/23 @ 12:47 by Alaina Romeo MD) Iron deficiency anemia (Acute) Unintentional weight loss (Acute) Dysphagia (Acute) Severe anemia (Acute)S/p 3 units PRBC H/H 4.4/17.2 now 8.6/29.8 ABLA (acute blood loss anemia) (Acute) Right bundle branch block (Acute) Jaundice (Acute) Onychomycosis (Acute) Difficulty swallowing (Acute) Systolic murmur (Acute) Past Medical History Medical History No pertinent past medical history Family History Family History Mother No problems noted. Father No problems noted. Family history of problems with anesthesia: No Surgical History Surgical History No pertinent past surgical history History of Problems with Anesthesia: No Social History Social History Household Members: Spouse and Family Household Members Other:: 2 Housing: House Do you presently have visiting nurse or other home services: No Alcohol intake: current Alcohol intake frequency: does not drink Patient Tobacco Use Status: Never used Tobacco e-Cigarette/Vaping Use: Never Used service: No Current occupational status: unemployed Cognitive needs: No Hearing needs: No Vision needs: Yes Meds Allergies Allergy/AdvReac Type Severity Reaction Status Date / Time No Known Allergies Allergy Verified 04/14/23 08:53 Active Medications: Current Medications Acetaminophen (Acetaminophen 325 Mg Tablet) 650 mg PO Q6H PRN PRN Reason: Pain, Mild (Pain Scale 1-3) Ondansetron HCl (Ondansetron Hcl 4 Mg/2 Ml Vial) 4 mg IVPUSH Q8H PRN PRN Reason: Nausea and Vomiting Pantoprazole Sodium (Pantoprazole Sodium 40 Mg/10 Ml Vial) 40 mg IVPUSH BID@0630,1630 [facility]ATH[facility] Last Admin: 04/20/23 05:30 Dose: 40 mg Senna (Sennosides 8.6 Mg Tablet) 17.2 mg PO BEDTIME PRN PRN Reason: Constipation Sodium Chloride (0.9 % Sodium Chloride Flush 3 Ml Syringe) 3 ml IVFLUSH QSHIFT [facility] Last Admin: 04/20/23 09:45 Dose: 3 ml Home Medications Medication Instructions Recorded Confirmed Last Taken Type No Known Home Meds 04/18/23 04/18/23 Unknown History Exam Height,Weight and Vital Signs: Height 5 ft 8 in Weight 64.5 kg Last Vital Signs Temp 97.4 F 04/20/23 11:47 Pulse 69 04/20/23 11:47 Resp 16 04/20/23 11:47 BP 128/67 04/20/23 11:47 Pulse Ox 99 04/20/23 11:47 O2 Del Method Room Air 04/20/23 11:47 Vital Signs Temp Pulse Resp BP Pulse Ox O2 Del Method 04/20/23 12:54 98.2 F 68 18 148/78 H 97 Room Air 04/20/23 12:48 98.2 F 18 97 Room Air 04/20/23 11:47 97.4 F 69 16 128/67 99 Room Air 04/20/23 07:19 97.0 F 73 18 120/67 93 Room Air 04/20/23 03:48 97.1 F 70 20 115/63 96 Room Air 04/19/23 23:01 97.9 F 98 17 131/79 97 Room Air 04/19/23 18:37 98.1 F 73 20 134/74 98 Room Air Pertinent Lab Results Pertinent Lab Results: Laboratory Tests 04/18/23 04/18/23 04/19/23 13:06 13:21 05:45 WBC 5.5 6.8 RBC 2.77 L 4.25 L D Hgb 4.4 L* 8.5 L D Hct 17.2 L* 29.2 L D MCV 62.1 L 68.7 L D MCH 15.9 L 20.0 L MCHC 25.6 L 29.1 L RDW 22.1 H 26.5 H Plt Count 356 367 MPV 8.3 L 8.6 L Immature Gran % (Auto) 0.4 0.4 Neut % (Auto) 57.2 67.3 Lymph % (Auto) 31.4 20.8 [place] % (Auto) 9.0 8.4 Eos % (Auto) 1.1 2.2 Baso % (Auto) 0.9 0.9 Lymph # (Auto) 1.7 1.4 [place] # (Auto) 0.5 0.6 Eos # (Auto) 0.1 0.2 Baso # (Auto) 0.1 0.1 Abs Immat Gran (auto) 0.02 0.03 Absolute Neuts (auto) 3.1 4.6 Absolute Nucleated RBC 0.040 H 0.020 H Nucleated RBC % (auto) 0.7 H 0.3 H Smear Tech's Comments VERIFIED PT 13.3 INR 1.1 Sodium 139 139 Potassium 4.4 3.6 Chloride 105 108 Carbon Dioxide 26 24 Anion Gap 12 11 L BUN 19 H 11 Creatinine 1.04 0.78 Estim Creat Clear Calc 62.1 82.8 Estimated GFR > 60 > 60 POC Glucose Random Glucose 96 86 Calcium 8.5 8.6 Iron 15 L TIBC 337 % Saturation 4 L Unsat Iron Binding 322 Ferritin 2 L Total Bilirubin 0.3 1.1 H AST 23 14 ALT 13 12 Alkaline Phosphatase 42 49 Total Protein 7.6 7.4 Albumin 3.8 3.6 Stool Occult Blood NEGATIVE Blood Type A Positive Antibody Screen NEGATIVE Crossmatch See Detail 04/19/23 04/20/23 16:52 05:50 WBC 7.5 RBC 4.32 L Hgb 8.6 L Hct 29.8 L MCV 69.0 L MCH 19.9 L MCHC 28.9 L RDW 27.2 H Plt Count 393 MPV 8.9 L Immature Gran % (Auto) Neut % (Auto) Lymph % (Auto) [place] % (Auto) Eos % (Auto) Baso % (Auto) Lymph # (Auto) [place] # (Auto) Eos # (Auto) Baso # (Auto) Abs Immat Gran (auto) Absolute Neuts (auto) Absolute Nucleated RBC 0.000 Nucleated RBC % (auto) 0.0 Smear Tech's Comments PT INR Sodium Potassium Chloride Carbon Dioxide Anion Gap BUN Creatinine Estim Creat Clear Calc Estimated GFR POC Glucose 101 Random Glucose Calcium Iron TIBC % Saturation Unsat Iron Binding Ferritin Total Bilirubin AST ALT Alkaline Phosphatase Total Protein Albumin Stool Occult Blood Blood Type Antibody Screen Crossmatch Airway Mallampati Class: III TM Dist: >3cm Neck ROM: Full Loose/Missing/Broken Teeth: Yes (Poor dentition. Some missing. Some broken. D enies loose) Heart: RRR + systolic murmur Lungs: CTAB Assessment and Plan Assessment Anesthesia Assessment: Anesthesia Plan Discussed and Chart Reviewed Final Anesthetic Review Family History of Problems with Anesthesia: No History of Problems with Anesthesia: No NPO: Yes ASA Class: III Final Preanesthetic Review: No Changes in Pt Med Stat, Meds/Allgs Chart Reviewed, Consent Obtained/Reviewed and Anes Risks/Benef Reviewed Patient Risk: Intermediate Assessment/Block/Sedation in SS: Assess/Block/Sedation-SS Anesthetic Plan Anesthetic Plan: MAC: Disposition: Standard PACU
--- NOTE | 2023-04-20 12:57 | MHC.SHP ---
Pre-Procedural Eval Section A - 24 Hr Update-Section A only Date of Service: 04/20/23 The patient is an INPATIENT: Yes Changes since office visit: Yes New Medical Problems, Yes Changes in Medication and Yes Patient answered all questions; No Cold of Flu in the past 2 weeks The patient has been examined within 24 hours of the surgical procedure. The History & Physical has been completed within 30 days and I have reviewed it.: Yes Section B - Complete if H&P > 30 days Chief Complaint: Acute Blood Loss Anemia GIB Allergies: Allergies Allergy/AdvReac Type Severity Reaction Status Date / Time No Known Allergies Allergy Verified 04/14/23 08:53 Plan Diagnosis/Plan: Unchanged I have reviewed the history and physical and performed a pertinent physical examination on my patient. No changes have occurred unless specified. Time Spent With Patient Time: Total time managing care of this patient today ____ minutes.
--- NOTE | 2023-04-20 13:16 | W.PM.OPN ---
Operative Note Operative Note Date of Service: 04/20/23 Narrative: FLEXIBLE TRANSORAL UPPER GASTROINTESTINAL ENDOSCOPY WITH BIOPSIES AND FLEXIBLE SIGMOIDOSCOPY TILL 20 CMS UPPER ENDOSCOPY Consent: Indications for the procedure and potential complications of bleeding, perforation, reaction to medications and missed diagnosis were discussed with the patient and informed consent was obtained. Instrument: Olympus GIF H 190 mid size upper endoscope Monitoring: Vital signs and clinical assessment, continuous EKG monitoring, Pulse oximetry, Carbon Dioxide monitoring and blood pressure monitoring were done throughout the procedure. Procedure: The patient was placed in the left lateral decubitis position and pre-procedure medications were administered and a bite block was placed. The endoscope was inserted into the mouth and advanced under direct vision to the third part of duodenum. A careful inspection was made as the upper endoscope was withdrawn including a retroflexed examination of the proximal stomach; Findings and interventions are described below. Findings: Larynx: Normal Esophagus: GE junction at 44 cms. No esophagitis or Cabello?s. Stomach: Mild gastric erythema - biopsies obtained from the antrum to check for H Pylori. Grade 2 flap valve on retroflexed examination of the cardia. Duodenum: Normal bulb and descending duodenum. Biopsies were obtained from 3rd part of the duodenum to check for celiac sprue. Intervention: Biopsies as noted above Flexible sigmoidoscopy Consent: Indications for the procedure and potential complications of bleeding, perforation, reaction to medications and missed diagnosis were discussed with the patient and informed consent was obtained. Instrument: Olympus PCF H 190 L variable stiffness pediatric colonoscope Monitoring: Vital signs and clinical assessment, intermittent blood pressure monitoring, continuous EKG monitoring, Pulse oximetry and Carbon Dioxide monitoring were done throughout the procedure. Procedure: The patient was placed in the left lateral decubitis position and pre-procedure medications were administered. After a digital rectal examination of the ano-rectum, the video colonoscope was inserted into the rectum and advanced through the colon to 20 cms into the sigmoid colon. It was not possible to advance further due to solid stools blocking the liumen. The colonoscope was removed and procedure was discontinued. Findings: Sigmoid Colon: Not evaluated due to poor prep Rectum: Not evaluated due to poor prep Anorectum: Rectal examination revealed palpable stool in the rectal vault Colon preparation: Poor - procedure was discontinued Impression and Post Procedure Diagnosis: Endoscopy Findings: STOMACH: Moderate gastric erythema - biopsies obtained from the antrum to check for H Pylori. Grade 2 flap valve on retroflexed examination of the cardia. DUODENUM: Normal - biopsies obtained to check for celiac sprue. Flexible sigmoidoscopy Findings: Procedure was abandoned due to poor prep Plan: I will order additional colon prep today - order placed for Dulcolax and Magnesium citrate today. Colonoscopy rescheduled on 04/21/[address] Lazaro. Above findings were reviewed with the patient.. BIOPSIES SHOWED: A. Small bowel, biopsy: Small bowel mucosa within normal limits; preserved villous architecture and no increased intraepithelial lymphocytes seen. B. Stomach, antrum, biopsy: Gastric antral mucosa with mild chronic inactive gastritis; negative for Helicobacter pylori, intestinal metaplasia and dysplasia
--- NOTE | 2023-04-20 15:28 | P.PNIM_ITS ---
Subjective Subjective Date of Service: 04/20/23 Interval History: Offers no acute complaints of abdominal pain, no nausea no vomiting, underwent upper endoscopy this morning, colonoscopy not done due to poor prep, no acute issues overnight denies hematemesis or melena. Review of Systems All other system reviewed and negative Physical Exam 2 Vital Signs: Vital Signs: Last Vital Signs Temp 97.2 F 04/20/23 14:04 Pulse 69 04/20/23 14:34 Resp 15 04/20/23 14:34 BP 122/50 L 04/20/23 14:34 Pulse Ox 100 04/20/23 14:34 O2 Del Method Room Air 04/20/23 14:34 O2 Flow Rate 6 04/20/23 14:04 BMI result Body Mass Index 21.6 Const: Other: General alert oriented x3, resting comfortably in no acute distress. Neck no JVD. CVS regular rate rhythm, Respiratory lungs clear to auscultation, no respiratory distress, no wheeze, no rhonchi. Gastrointestinal abdomen soft, non tender, bowel sounds audible, no guarding , no rigidity. Extremities no edema. Neuro non focal Skin no rash Psych appropriate affect Objective Data Active Medications Acetaminophen (Acetaminophen 325 Mg Tablet) 650 mg PO Q6H PRN PRN Reason: Pain, Mild (Pain Scale 1-3) Lactated Ringer's (Lr) 1,000 mls @ 100 mls/hr IVCONT .Q10H [facility] Magnesium Citrate (Magnesium Citrate 300 Ml Solution) 300 ml PO ONCE ONE Stop: 04/20/23 15:31 Ondansetron HCl (Ondansetron Hcl 4 Mg/2 Ml Vial) 4 mg IVPUSH Q8H PRN PRN Reason: Nausea and Vomiting Ondansetron HCl (Ondansetron Hcl 4 Mg/2 Ml Vial) 4 mg IVPUSH ONCE PRN PRN Reason: Nausea and Vomiting Pantoprazole Sodium (Pantoprazole Sodium 40 Mg/10 Ml Vial) 40 mg IVPUSH BID@0630,1630 [facility] Last Admin: 04/20/23 05:30 Dose: 40 mg Documented By: ZAKI Senna (Sennosides 8.6 Mg Tablet) 17.2 mg PO BEDTIME PRN PRN Reason: Constipation Sodium Chloride (0.9 % Sodium Chloride Flush 3 Ml Syringe) 3 ml IVFLUSH QSHIFT [facility] Last Admin: 04/20/23 09:45 Dose: 3 ml Documented By: LINDA Labs 04/20/23 05:50 04/19/23 05:45 Labs: Laboratory Results - last 24 hr 04/19/23 04/20/23 16:52 05:50 MCV 69.0 L MCH 19.9 L MCHC 28.9 L RDW 27.2 H Plt Count 393 MPV 8.9 L Absolute Nucleated RBC 0.000 Nucleated RBC % (auto) 0.0 POC Glucose 101 Assessment and Plan (1) Severe anemia: Status: Acute Plan 62 year old male without any significant past medical history with poor outpt follow up presents to the office at the recommendation of PCP (seen 04/14 to reestablish care after 15 years) due to low blood counts. He will be admitted for severe anemia due #Acute on chronic microcytic anemia -etiology unclear, occult GI bleed vs malignancy -stool guaiac negative, iron studies suggestive of iron deficiency Status post 3 units of packed RBC hematocrit improved from 17.2% to 29.2, repeat hematocrit remained stable Underwent upper endoscopy that showed moderate gastric erythema biopsies obtained from the antrum to check for H pylori, duodenal normal Patient will undergo colonoscopy tomorrow will continue clear liquid diet, NPO after midnight , additional prep ordered by GI On IV PPI will transition to by mouth,will place on iron supplement . # dysphagia seen by speech therapy they recommend regular diet with thin liquids, and outpatient MBSS study if symptoms persist. #Systolic murmur -likely related to severe anemia, patient asymptomatic outpatient follow-up #Liver hemangioma -5cm liver lesion, likely hemangioma, outpatient follow-up MRI as per GI recommendation DVt prophylaxis- scd's full code pt requires continued inpt stay for management of acute on chronic severe symptomatic anemia requiring close CBC monitoring, and colonoscopy scheduled for morning. Quality Stroke Does the patient have a stroke diagnosis?: No VTE Prior VTE?: No VTE Risk Level:: Medical - moderate - high VTE Device Contraindication: N/A - Device Ordered VTE Drug Contraindication: Treatment Not Indicated
[2023-04-20] MEDS: bisacodyL 5 MG TABLET.DR 10 MG PO (15:34)
[2023-04-20] MEDS: Omeprazole 40 MG CAPSULE.DR PO (15:46)
[2023-04-20] MEDS: Magnesium Citrate 300 ML SOLUTION PO (17:26)
[2023-04-21] VITALS (7 sets, daily range): BP systolic 106–127; BP diastolic 65–71; PULSE 61–87; RESP 18–20; TEMP 36.1–36.8; O2SAT 96–100
[2023-04-21] MEDS: 0.9 % Sodium Chloride Flush 3 ML SYRINGE IVFLUSH ×3 (01:06→21:56)
[2023-04-21] MEDS: Omeprazole 40 MG CAPSULE.DR PO ×2 (05:42→15:51)
--- NOTE | 2023-04-21 09:37 | MHC.SLORD ---
Speech Language Pathology Order Status: Patient is NPO for colonoscopy. Dysphagia treatment deferred until tomorrow morning.
--- NOTE | 2023-04-21 14:34 | P.PNIM_ITS ---
Subjective Subjective Date of Service: 04/21/23 Interval History: NPO this morning for colonoscopy however due to lack of repeat Colyte procedure rescheduled for tomorrow morning patient placed on clear liquid diet, patient offers no acute complaints of nausea vomiting, no hematemesis, no melena, no acidity or heartburn. Review of Systems All other system reviewed and negative. Physical Exam 2 Vital Signs: Vital Signs: Last Vital Signs Temp 97.6 F 04/21/23 11:05 Pulse 87 04/21/23 11:05 Resp 18 04/21/23 11:05 BP 106/69 04/21/23 11:05 Pulse Ox 100 04/21/23 11:05 O2 Del Method Room Air 04/21/23 11:05 O2 Flow Rate 6 04/20/23 14:04 BMI result Body Mass Index 21.6 Const: Other: General alert oriented x3, resting comfortably in no acute distress. Neck no JVD. CVS regular rate rhythm, Respiratory lungs clear to auscultation, no respiratory distress, no wheeze, no rhonchi. Gastrointestinal abdomen soft, non tender, bowel sounds audible, no guarding , no rigidity. Extremities no edema. Neuro non focal Skin no rash Psych appropriate affect Objective Data Active Medications Acetaminophen (Acetaminophen 325 Mg Tablet) 650 mg PO Q6H PRN PRN Reason: Pain, Mild (Pain Scale 1-3) Bisacodyl (Bisacodyl 5 Mg Tablet.) 10 mg PO ONCE ONE Stop: 04/21/23 15:44 Omeprazole (Omeprazole 40 Mg Capsule.) 40 mg PO BID@0630,1630 [facility] Last Admin: 04/21/23 05:42 Dose: 40 mg Documented By: JANNY Ondansetron HCl (Ondansetron Hcl 4 Mg/2 Ml Vial) 4 mg IVPUSH Q8H PRN PRN Reason: Nausea and Vomiting Ondansetron HCl (Ondansetron Hcl 4 Mg/2 Ml Vial) 4 mg IVPUSH ONCE PRN PRN Reason: Nausea and Vomiting Polyethylene Glycol/Electrolytes (Peg 3350/Na Sulf,Bicarb,Cl/Kcl 4,000 Ml Soln.Recon) 240 ml PO Q10M [facility] Stop: 04/21/23 21:26 Senna (Sennosides 8.6 Mg Tablet) 17.2 mg PO BEDTIME PRN PRN Reason: Constipation Sodium Chloride (0.9 % Sodium Chloride Flush 3 Ml Syringe) 3 ml IVFLUSH QSHIFT [facility] Last Admin: 04/21/23 11:38 Dose: Not Given Documented By: HALLIE Non-Admin Reason: Previously Administered Labs 04/20/23 05:50 04/19/23 05:45 Assessment and Plan (1) Severe anemia: Status: Acute Plan 62 year old male without any significant past medical history with poor outpt follow up presents to the office at the recommendation of PCP (seen 04/14 to reestablish care after 15 years) due to low blood counts. He will be admitted for severe anemia due #Acute on chronic microcytic anemia -etiology unclear, occult GI bleed vs malignancy -stool guaiac negative, iron studies suggestive of iron deficiency Status post 3 units of packed RBC hematocrit improved from 17.2% to 29.2, repeat hematocrit remained stable Underwent upper endoscopy that showed moderate gastric erythema biopsies obtained from the antrum to check for H pylori, duodenal normal Patient will undergo colonoscopy tomorrow will continue clear liquid diet, NPO after midnight , additional prep ordered by GI On po ppi,will place on iron supplement after above procedure. # dysphagia seen by speech therapy they recommend regular diet with thin liquids, and outpatient MBSS study if symptoms persist. #Systolic murmur -likely related to severe anemia, patient asymptomatic outpatient follow-up #Liver hemangioma -5cm liver lesion, likely hemangioma, outpatient follow-up MRI as per GI recommendation DVt prophylaxis- scd's full code pt requires continued inpt stay for management of acute on chronic severe symptomatic anemia requiring close CBC monitoring, and colonoscopy scheduled for morning. Quality Stroke Does the patient have a stroke diagnosis?: No VTE Prior VTE?: No VTE Risk Level:: Medical - moderate - high VTE Device Contraindication: N/A - Device Ordered VTE Drug Contraindication: Treatment Not Indicated
--- NOTE | 2023-04-21 15:18 | MHC.CM.PN ---
Pt not yet ready for DC, scheduled for a colonoscopy 04/21, CM to follow and assist with DC plan.
[2023-04-21] MEDS: bisacodyL 5 MG TABLET.DR 10 MG PO (15:51)
[2023-04-21] MEDS: PEG 3350/Na Sulf,Bicarb,Cl/KCL 4,000 ML SOLN.RECON 240 ML PO ×16 (20:15→23:52)
[2023-04-22] VITALS (8 sets, daily range): BP systolic 93–127; BP diastolic 48–79; PULSE 56–94; RESP 16–20; TEMP 36.1–36.7; O2SAT 92–100
[2023-04-22] MEDS: PEG 3350/Na Sulf,Bicarb,Cl/KCL 4,000 ML SOLN.RECON 240 ML PO (00:31)
[2023-04-22] MEDS: Omeprazole 40 MG CAPSULE.DR PO ×2 (06:20→16:21)
[2023-04-22] MEDS: 0.9 % Sodium Chloride Flush 3 ML SYRINGE IVFLUSH ×2 (09:28→16:12)
--- NOTE | 2023-04-22 09:29 | MHC.CM.PN ---
CM MET W/PT VIA OrtheraONESE NEWSCAST DIRECTOR, PT EDUCATED ON AND COMPLETED A HCP NAMING HIS EYAL LIZAMA [phone] HIS [facility] AND HIS DTR FRANCA HAN [phone] HIS ALTERNATE, PT PROVIDED W/[place]RA[place]I AND [employer]ADITIONAL GREEK INFORMATIONAL HANDOUT, ORIGINAL AND 2 COPIES, COPY UPLOADED TO [facility] AND PLACED IN CHART.
[2023-04-22 09:39] LABS: Hematocrit 31.6 % (42.0-52.0); Hemoglobin 9.2 g/dl (14.0-18.0); Mean Corpuscular HGB Conc 29.1 g/dl (31.0-36.0); Mean Corpuscular Hemoglobin 20.5 pg (27.0-33.0); Mean Corpuscular Volume 70.4 fL (80.0-98.0); Mean Platelet Volume 8.6 fL (9.4-12.4); Platelet Count 347 X10*3/uL (160-400); Red Blood Count 4.49 X10*6/uL (4.60-5.80); Red Cell Distribution Width 28.9 % (11.0-16.0); White Blood Count 5.5 X10*3/uL (4.8-10.8)
--- NOTE | 2023-04-22 10:35 | HO.POSTANES ---
Post Anesthesia Evaluation Post Anesthesia Evaluation Date of Service: 04/22/23 Vital Signs: Vital Signs Temp Pulse Resp BP Pulse Ox O2 Del Method 04/22/23 07:15 97.4 F 78 18 115/77 100 Room Air 04/22/23 03:37 97 F 61 18 124/65 92 Room Air 04/21/23 23:35 97 F 80 18 116/71 100 Room Air Anesthesia: Monitored Mental Status: Awake Pain Control: Satisfactory Nausea/Vomiting: None Hydration: Adequate Anesthesia-Related Issues: No Anes. Related Issues
--- NOTE | 2023-04-22 10:41 | MHC.CM.PN ---
PER MULTIDISCIPLINARY ROUNDS PLAN FOR COLONOSCOPY TODAY AND ANTIC DC LATER TODAY VS TOMORROW 04/22, PT'S WILL TRANSPORT
--- NOTE | 2023-04-22 12:44 | MHC.SHP ---
Pre-Procedural Eval Section A - 24 Hr Update-Section A only Date of Service: 04/22/23 The patient is an INPATIENT: Yes The patient has been examined within 24 hours of the surgical procedure. The History & Physical has been completed within 30 days and I have reviewed it.: Yes Section B - Complete if H&P > 30 days Chief Complaint: Acute Blood Loss Anemia GIB Allergies: Allergies Allergy/AdvReac Type Severity Reaction Status Date / Time No Known Allergies Allergy Verified 04/14/23 08:53 Plan Diagnosis/Plan: Unchanged I have reviewed the history and physical and performed a pertinent physical examination on my patient. No changes have occurred unless specified. colonoscopy for anemia work up Time Spent With Patient Time: Total time managing care of this patient today ____ minutes.
--- NOTE | 2023-04-22 12:45 | W.PM.OPN ---
Operative Note Operative Note Date of Service: 04/22/23 Narrative: Operative Information Procedure Description: Colonoscopy Indication: anemia Anesthesia: MAC COLONOSCOPY Instrument: Olympus variable stiffness pediatric scope 190L Colonoscopy Monitoring: Vital signs and clinical assessment, continuous EKG monitoring, Pulse oximetry, Carbon Dioxide monitoring and blood pressure monitoring were done throughout the procedure. Colon withdrawal time was 8 minutes. Procedure: The patient was placed in the left lateral decubitis position and pre-procedure medications were administered. After a digital rectal examination of the ano-rectum, the video colonoscope was inserted into the rectum and advanced through the colon to the cecum/TI. The colonoscope was slowly withdrawn in a retrograde panoramic fashion and the colon mucosa was carefully examined including a retroflexed view of the rectum. Findings and interventions are described below. Procedure Difficulty: moderate Findings: Terminal Ileum-normal, random bx taken Random colon bx taken Cecum:normal Ascending Colon: normal Transverse Colon -normal Descending Colon:normal Sigmoid Colon: normal Rectum: Retroflexion with small internal hemorrhoids seen, grade I, 4-6 mm sessile polyp removed with cold snare Anorectum - normal Intervention: cold snare polypectomy, cold forceps biopsy Colon preparation: [place] Bowel Preparation Scale Right colon; 2 Transverse colon: 2 Left colon; 2 (0 = Unprepared colon segment with mucosa not seen due to solid stool that cannot be cleared. 1 = Portion of mucosa of the colon segment seen, but other areas of the colon segment not well seen due to staining, residual stool and/or opaque liquid. 2 = Minor amount of residual staining, small fragments of stool and/or opaque liquid, but mucosa of colon segment seen well. 3 = Entire mucosa of colon segment seen well with no residual staining, small fragments of stool or opaque liquid) Impression and Post Procedure Diagnosis: colon polyp internal hemorrhoids Plan: High fiber diet leaflet Avoid straining at stool, epsom salts and sitz bath, anusol supps or cream Repeat Colonoscopy in 5-7 years due to polyp or earlier if clinically indicated consider o/p capsule endoscopy Above findings were reviewed with the patient and relevant handouts were provided if indicated.
--- NOTE | 2023-04-22 12:53 | P.CONAN_ITS ---
[facility] Active Problems Active Problems: All Active Problems (Updated 04/19/23 @ 18:11 by Ozzie Guevara MD) Iron deficiency anemia (Acute) Unintentional weight loss (Acute) Dysphagia (Acute) Severe anemia (Acute) ABLA (acute blood loss anemia) (Acute) Right bundle branch block (Acute) Jaundice (Acute) Onychomycosis (Acute) Difficulty swallowing (Acute) Systolic murmur (Acute) Past Medical History Medical History No pertinent past medical history Family History Family History Mother No problems noted. Father No problems noted. Family history of problems with anesthesia: No Surgical History Surgical History No pertinent past surgical history History of Problems with Anesthesia: No Social History Social History Household Members: Spouse and Family Household Members Other:: 2 Housing: House Do you presently have visiting nurse or other home services: No Alcohol intake: current Alcohol intake frequency: does not drink Patient Tobacco Use Status: Never used Tobacco e-Cigarette/Vaping Use: Never Used service: No Current occupational status: unemployed Cognitive needs: No Hearing needs: No Vision needs: Yes Meds Allergies Allergy/AdvReac Type Severity Reaction Status Date / Time No Known Allergies Allergy Verified 04/14/23 08:53 Active Medications: Current Medications Acetaminophen (Acetaminophen 325 Mg Tablet) 650 mg PO Q6H PRN PRN Reason: Pain, Mild (Pain Scale 1-3) Omeprazole (Omeprazole 40 Mg Capsule.) 40 mg PO BID@0630,1630 [facility] Last Admin: 04/22/23 06:20 Dose: 40 mg Ondansetron HCl (Ondansetron Hcl 4 Mg/2 Ml Vial) 4 mg IVPUSH Q8H PRN PRN Reason: Nausea and Vomiting Ondansetron HCl (Ondansetron Hcl 4 Mg/2 Ml Vial) 4 mg IVPUSH ONCE PRN PRN Reason: Nausea and Vomiting Senna (Sennosides 8.6 Mg Tablet) 17.2 mg PO BEDTIME PRN PRN Reason: Constipation Sodium Chloride (0.9 % Sodium Chloride Flush 3 Ml Syringe) 3 ml IVFLUSH QSHIFT CATHY Last Admin: 04/22/23 09:28 Dose: 3 ml Home Medications Medication Instructions Recorded Confirmed Last Taken Type No Known Home Meds 04/18/23 04/18/23 Unknown History Exam Height,Weight and Vital Signs: Height 5 ft 8 in Weight 64.5 kg Last Vital Signs Temp 98.1 F 04/22/23 12:25 Pulse 73 04/22/23 12:25 Resp 16 04/22/23 12:25 BP 127/71 04/22/23 12:25 Pulse Ox 94 04/22/23 12:25 O2 Del Method Room Air 04/22/23 12:25 O2 Flow Rate 6 04/20/23 14:04 Pertinent Lab Results Pertinent Lab Results: Laboratory Tests 04/18/23 04/18/23 04/19/23 13:06 13:21 05:45 WBC 5.5 6.8 RBC 2.77 L 4.25 L D Hgb 4.4 L* 8.5 L D Hct 17.2 L* 29.2 L D MCV 62.1 L 68.7 L D MCH 15.9 L 20.0 L MCHC 25.6 L 29.1 L RDW 22.1 H 26.5 H Plt Count 356 367 MPV 8.3 L 8.6 L Immature Gran % (Auto) 0.4 0.4 Neut % (Auto) 57.2 67.3 Lymph % (Auto) 31.4 20.8 Chambers % (Auto) 9.0 8.4 Eos % (Auto) 1.1 2.2 Baso % (Auto) 0.9 0.9 Lymph # (Auto) 1.7 1.4 Chambers # (Auto) 0.5 0.6 Eos # (Auto) 0.1 0.2 Baso # (Auto) 0.1 0.1 Abs Immat Gran (auto) 0.02 0.03 Absolute Neuts (auto) 3.1 4.6 Absolute Nucleated RBC 0.040 H 0.020 H Nucleated RBC % (auto) 0.7 H 0.3 H Smear Tech's Comments VERIFIED PT 13.3 INR 1.1 Sodium 139 139 Potassium 4.4 3.6 Chloride 105 108 Carbon Dioxide 26 24 Anion Gap 12 11 L BUN 19 H 11 Creatinine 1.04 0.78 Estim Creat Clear Calc 62.1 82.8 Estimated GFR > 60 > 60 POC Glucose Random Glucose 96 86 Calcium 8.5 8.6 Iron 15 L TIBC 337 % Saturation 4 L Unsat Iron Binding 322 Ferritin 2 L Total Bilirubin 0.3 1.1 H AST 23 14 ALT 13 12 Alkaline Phosphatase 42 49 Total Protein 7.6 7.4 Albumin 3.8 3.6 Stool Occult Blood NEGATIVE Blood Type A Positive Antibody Screen NEGATIVE Crossmatch See Detail 04/19/23 04/20/23 04/22/23 16:52 05:50 09:16 WBC 7.5 5.5 RBC 4.32 L 4.49 L Hgb 8.6 L 9.2 L Hct 29.8 L 31.6 L MCV 69.0 L 70.4 L MCH 19.9 L 20.5 L MCHC 28.9 L 29.1 L RDW 27.2 H 28.9 H Plt Count 393 347 MPV 8.9 L 8.6 L Immature Gran % (Auto) Neut % (Auto) Lymph % (Auto) Chambers % (Auto) Eos % (Auto) Baso % (Auto) Lymph # (Auto) Chambers # (Auto) Eos # (Auto) Baso # (Auto) Abs Immat Gran (auto) Absolute Neuts (auto) Absolute Nucleated RBC 0.000 0.000 Nucleated RBC % (auto) 0.0 0.0 Smear Tech's Comments PT INR Sodium Potassium Chloride Carbon Dioxide Anion Gap BUN Creatinine Estim Creat Clear Calc Estimated GFR POC Glucose 101 Random Glucose Calcium Iron TIBC % Saturation Unsat Iron Binding Ferritin Total Bilirubin AST ALT Alkaline Phosphatase Total Protein Albumin Stool Occult Blood Blood Type A Positive Antibody Screen NEGATIVE Crossmatch Airway Mallampati Class: III (globallly poor dentition) TM Dist: >3cm Neck ROM: Full Loose/Missing/Broken Teeth: Yes Heart: RRR Lungs: CTA Assessment and Plan Assessment Anesthesia Assessment: Anesthesia Plan Discussed and Chart Reviewed Final Anesthetic Review Family History of Problems with Anesthesia: No History of Problems with Anesthesia: No NPO: Yes ASA Class: III Final Preanesthetic Review: Meds/Allgs Chart Reviewed, Consent Obtained/Reviewed and Anes Risks/Benef Reviewed Patient Risk: Intermediate Procedure Risk: Low Anesthetic Plan Anesthetic Plan: MAC: Disposition: Standard PACU
--- NOTE | 2023-04-22 14:49 | MHC.SLORD ---
Speech Language Pathology Order Status: Patient was NPO this a.m. and pending colonoscopy, has been on clear liquid diet for two days pending this procedure. COAT FELLER recommendation is for regular diet with thin liquids, patient can resume diet when medically cleared. COAT FELLER will f/u X1 for toleration of diet when it is resumed.
--- NOTE | 2023-04-22 15:49 | P.DS_ITS ---
DS: Providers Provider Date of Service: 04/22/23 Date of admission: 04/18/23 14:46 Primary care physician: KURT Mena Consults: 04/18/23 14:51 Consult to Gastroenterology Routine Consulting Provider: Ozzie Guevara Reason for consultation: GIB, symptomatic anemia DS: Diagnosis Discharge Diagnosis (1) Severe anemia: Status: Acute DS: Summary Hospital Course Hospital Course: History of presenting illness: Date of Service: 04/18/23 Attending physician on admission: [facility] Chief Complaint: dizziness, fatigue 62 year old male without any significant past medical history with poor outpt follow up presents to the office at the recommendation of PCP (seen 04/14 to reestablish care after 15 years) due to low blood counts. He reports he has been feeling weak and dizzy intermittently for about 3-4 years. Also reports rhinorrhea and congestion ongoing for several years. He has had intermittent dysphagia to solids only, denies globus sensation. Denies fevers, chills, abd pain, n/v/d, melena, hematochezia, urinary symptoms/hematuria, unintentional weight loss, sob, syncope, palpitations, chest pain. No changes in bowel habits or appetite. No anorexia. Has never undergone screening colonoscopy. Since arrival has been tachycardic in the low 100s-130, vitals otherwise stable. No leukocytosis. H/H 4.4/17.2%, MCV 62.1. Chest CT shows enlarged heart, small pericardial effusion, and subsegmental atelectasis with normal appearing esophagus. CT abd/pelvis shows 5cm liver lesion, likely hemangioma, follow up mri recommended and slightly enlarged prostate. In the ED tranfused 3 units PRBC. Hospital course: 62 year old male without any significant past medical history with poor outpt follow up, referred to [place] ED by his PCP due to abnormal labs, in ED patient noted to have hemoglobin 4.4 and hematocrit of 17.2 therefore admitted to medical floor with a diagnosis of: #Acute on chronic microcytic anemia, patient received 3 units of packed RBC hematocrit improved to 29.2 and remained stable, stool guaiac negative iron studies suggestive of iron deficiency, patient underwent both upper endoscopy that showed moderate gastric erythema biopsies obtained from the antrum to check for H pylori, duodenal normal colonoscopy showed small internal hemorrhoids grade 1 and 4-6 mm sessile polyp that was removed with cold snare , patient treated with IV iron and placed on iron supplement, he is recommended to take high-fiber diet, use Anusol HC suppository and to have close outpatient follow-up with Gastroenterology for capsule endoscopy, and to receive pathology report from GI biopsies. # dysphagia seen by speech therapy they recommend regular diet with thin liquids, and outpatient MBSS study if symptoms persist. #Systolic murmur -likely related to severe anemia, patient asymptomatic outpatient follow-up with PCP. #Liver hemangioma -5cm liver lesion, likely hemangioma, outpatient follow-up MRI as per GI recommendation. Time Attestation Discharge Coordination Time (in mins): 35 Quality: Safe Use of Opioids Does Pt have an Active Cancer Diagnosis on the Problem List?: No Quality: Stroke Does the patient have a stroke diagnosis?: No Physical Exam Vital Signs: Vital Signs: Last Vital Signs Temp 97.5 F 04/22/23 15:35 Pulse 74 04/22/23 15:35 Resp 18 04/22/23 15:35 BP 126/74 04/22/23 15:35 Pulse Ox 92 04/22/23 15:35 O2 Del Method Room Air 04/22/23 15:35 O2 Flow Rate 6 04/20/23 14:04 BMI result Body Mass Index 21.6 Const: Other: General alert oriented x3, resting comfortably in no acute distress. Neck no JVD. CVS regular rate rhythm, Respiratory lungs clear to auscultation, no respiratory distress, no wheeze, no rhonchi. Gastrointestinal abdomen soft, non tender, bowel sounds audible, no guarding , no rigidity. Extremities no edema. Neuro non focal Skin no rash Psych appropriate affect DS: Data Data Completed and Pending Completed studies during hospitalization [Text1]: Pending at discharge 04/20/23 13:50 Surgical [PTH] Routine Pending studies at discharge: Pending at discharge 04/22/23 13:15 Surgical [PTH] Routine Labs on day of discharge: Laboratory Results - last 24 hr 04/22/23 09:16 WBC 5.5 RBC 4.49 L Hgb 9.2 L Hct 31.6 L MCV 70.4 L MCH 20.5 L MCHC 29.1 L RDW 28.9 H Plt Count 347 MPV 8.6 L Absolute Nucleated RBC 0.000 Nucleated RBC % (auto) 0.0 Blood Type A Positive Antibody Screen NEGATIVE Discharge Plan Discharge Anticipated Discharge Date/Time: 04/22/23 14:47 Patient Disposition: Home, Self-Care Discharge Diagnosis: Internal hemorrhoids Referrals: Lonnie Jj FNP [Primary Care Provider] - 1 Week Discharge Medications: New ferrous sulfate 324 mg (65 mg iron) Tablet,Delayed Release (Dr/Ec) 324 mg PO BIDWM Qty: 120 0RF ascorbic acid (vitamin C) 250 mg Tablet 250 mg PO BID Qty: 120 0RF omeprazole 40 mg capsule,delayed release(DR/EC) 40 mg PO DAILY Qty: 90 0RF hydrocortisone acetate [Anusol-HC] 25 mg suppository 25 mg NH BEDTIME Qty: 12 0RF Discharge Orders: Discharge Order (Routine); Ordered 04/22/23 Ordered By: Finn Capellan Diet: Advance to usual diet Activity on Discharge: As tolerated Stand Alone Forms: Patient Portal Discharge page Care Plan Goals: Internal hemorrhoids, polyp removed with cold snare Take high-fiber diet, avoid straining at stool/Epsom salts and Sitz bath Repeat colonoscopy in 5-7 years Outpatient capsule endoscopy follow-up with front desk agent Dr. Guevara/Dr. Lazaro call for appointment Incidental finding of 5 cm liver lesion likely hemangioma outpatient follow-up MRI with gastroenterology and PCP Dysphagia resolved continue regular diet and thin liquid if noted to have recurrent symptoms outpatient MBS study Take iron supplements 1 tablet twice daily with vitamin-C 1 tablet twice daily for better absorption Take Prilosec 40 mg 1 tablet daily before breakfast Health Concerns: Iron-deficiency anemia Plan of Treatment: Outpatient follow-up with primary care physician and front desk agent Dr. Guevara and Dr. Sanches Assessment: As above Discharge Date/Time: 04/22/23 17:33
[2023-04-22] MEDS: Iron Sucrose Complex 200 MG in 0.9 % Sodium Chloride 100 ML 440 MG IV (16:12)
[2023-04-22] MEDS: Ferrous Sulfate 324 MG TABLET.DR PO (16:21)
== END 2023-04-22 17:33 | disposition home or self-care (01) | DRG 254 ==
LOC: HO.ED 14:13 → HO.EDOVER 15:00 → HO.IMC 04-19 19:42
PROVIDERS: Internal Medicine Gastroenterology; Admitting Provider Physician Assistant; Emergency Provider Student in an Organized Health Care Education/Training Program; PCP Nurse Practitioner Primary Care; Visit Provider Hospitalist
PROC: 0DB98ZX Excision of Duodenum, Via Natural or Artificial Opening Endoscopic, Diagnostic (ICD-10-PCS; principal; 2023-04-20 13:10)
PROC: 0DJD8ZZ Inspection of Lower Intestinal Tract, Via Natural or Artificial Opening Endoscopic (ICD-10-PCS; CPT 45378; principal; 2023-04-22 15:20)
DX: K64.0 First degree hemorrhoids (principal); D62 Acute posthemorrhagic anemia; D18.09 Hemangioma of other sites; K62.1 Rectal polyp; K29.50 Unspecified chronic gastritis without bleeding; R01.1 Cardiac murmur, unspecified; R13.10 Dysphagia, unspecified; Z91.199 Patient's noncompliance with other medical treatment and regimen due to unspecified reason
CPT/HCPCS: 36415; 71260; 74177; 80053; 82272; 82728; 82947; 83540; 85025; 85027; 85610; 86850; 86900; 86901; 86923; 88305; 88313; 88342; 92610; 99285; C9113; J1756; J2704; P9016; Q9967

== ENCOUNTER → 2023-04-18 14:46 | Outpatient (BNV) | payer OTHER, SELFPAY | PROVIDERS: Admitting Provider Physician Assistant; Emergency Provider Student in an Organized Health Care Education/Training Program; PCP Nurse Practitioner Primary Care; Visit Provider Internal Medicine Gastroenterology | DX: K63.5 Polyp of colon (principal); K64.8 Other hemorrhoids; D64.9 Anemia, unspecified | CPT/HCPCS: 45380; 45385 ==

== ENCOUNTER → 2023-04-18 14:46 | Outpatient (BNV) | payer OTHER, SELFPAY | PROVIDERS: Admitting Provider Physician Assistant; Emergency Provider Student in an Organized Health Care Education/Training Program; PCP Nurse Practitioner Primary Care; Visit Provider Hospitalist | DX: D62 Acute posthemorrhagic anemia (principal) | CPT/HCPCS: 99223; 99232; 99233; 99239 ==

== ENCOUNTER → 2023-04-18 14:46 | Outpatient (BNV) | payer OTHER, SELFPAY | PROVIDERS: Admitting Provider Physician Assistant; Emergency Provider Student in an Organized Health Care Education/Training Program; PCP Nurse Practitioner Primary Care; Visit Provider Internal Medicine Gastroenterology | DX: R13.10 Dysphagia, unspecified (principal); D64.9 Anemia, unspecified; K31.89 Other diseases of stomach and duodenum | CPT/HCPCS: 43239; 45378; 99222 ==

== ENCOUNTER 2023-04-30 15:36 | Outpatient (AMB) | payer OTHER, SELFPAY ==
--- NOTE | 2023-04-30 15:40 | A.OFFPC_ITS ---
Vital Signs 04/30/23 15:41 Height 5 ft 8 in Weight 142 lb 4 oz BMI 21.6 BP 126/74 Blood Pressure Location Rt brachial Position Sitting Pulse 88 Pulse Source Pulse Oximeter Pulse Oximetry (%) 98 Oxygen Delivery Method Room Air Intake Visit Reasons: HDF 04/22/23 Low blood Intake Note: [place] [facility] [place]erg[place] No Known Allergies Allergy (Verified 04/30/23 15:43) Tobacco use date assessed: 04/30/23 Fall risk assessment: No Falls in past year Last assessed Fall Risk: 04/30/23 HPI HPI Comments History of Present Illness Details Patient is a 62-year-old male in today for hospital discharge follow- up. He was admitted 2 weeks prior for weakness and dizziness. His CBC was found to have a hemoglobin of 4.3, hematocrit of 19.2. He was admitted to the hospital and given blood transfusions, his blood levels improved to hemoglobin 9.2, and hematocrit of 31.6. While in the hospital patient also had colonoscopy. Discharge instructions are to follow up with GI within the next several weeks to go over biopsies. Patient is also recommended to have outpatient MRI to follow up on incidental finding of liver hemangioma. Patient was discharged on ferrous fumarate 325, vitamin-C 250, omeprazole 40 mg, and hydrocortisone acetate suppository. Patient states he has not been able to take hydrocortisone acetate because of travis. Patient instructed to follow up with consult GI. Patient presents today he states he feels much better. He denies episodes of dizziness, chest pain, shortness a breath, dyspnea on exertion, nausea, vomiting, diarrhea. Patient has been instructed to have a high-fiber diet due to iron supplement. Patient has been instructed to avoid straining while having a bowel movement. Will follow-up in 2-3 months with repeat CBC. Patient has been educated on signs of worsening symptoms and when to report back to the office or when to present to the emergency room. Patient states he understands [facility] Medical History (Updated 04/30/23 @ 16:39 by KURT Mena) Unintentional weight loss No pertinent past medical history Surgical History (Updated 04/30/23 @ 16:34 by KURT Mena) H/O colonoscopy No pertinent past surgical history Family History Mother No problems noted. Father No problems noted. Social History Household Members: Spouse and Family Household Members Other:: 2 Housing: House Do you presently have visiting nurse or other home services: No Alcohol intake: current Alcohol intake frequency: does not drink Patient Tobacco Use Status: Never used Tobacco e-Cigarette/Vaping Use: Never Used service: No Current occupational status: unemployed Cognitive needs: No Hearing needs: No Vision needs: Yes Questionnaire PHQ-9 Over the last 2 weeks, how often have you been bothered by any of the following problems? 34909 - PHQ-9 Billing: Patient declined-do not bill Source: Developed by Drs. Mark Greenfield, Marely Hunter, Víctor Alcantar and colleagues, with an educational anatoliy from [employer]. Thrive Questionnaire Date Thrive assessed: 04/20/23 TRISHA-7 AMB Questionnaire TRISHA-7 Date TRISHA - 7 assessed: 04/14/23 Source: Developed by Drs. Mark Greenfield, Marely Hunter, Víctor Alcantar and colleagues, with an educational anatoliy from [employer]. TRISHA-7 Assessment Billing TRISHA-7 Assessment Tool: pt declined-do not bill Review of Systems Const Details: Constitutional : No Weight loss, No Fever, No Chills, No Fatigue, No Malaise ENT/Mouth : No sore throat, No Rhinorrhea Eyes: No Eye Pain, No Swelling, No Redness Cardiovascular : No Chest Pain, No SOB, No Dyspnea on Exertion, No Orthopnea, No Edema, No Palpitations Respiratory : No Cough, No Sputum, No Wheezing Gastrointestinal : No Nausea, No Vomiting, No Diarrhea, No Constipation, No abdominal Pain, No Hematochezia, No Melena Genitourinary : No Dysuria, No Urinary Frequency, No Hematuria, Musculoskeletal : No joint pain, No Myalgias, No Joint Swelling Skin : No Skin Lesions, No rash Neuro : No Weakness, No Numbness, No Dizziness, No Headache Psych : No Anxiety/Panic, No Depression Heme/Lymph: No Bruising, No Bleeding,No Lymphadenopathy Endocrine : No Polyuria, No Polydipsia All other systems reviewed and are negative Physical exam (Primary Care) Vital Signs: Last Vital Signs Pulse 88 04/30/23 15:41 BP 126/74 04/30/23 15:41 Pulse Ox 98 04/30/23 15:41 Oxygen Delivery Method Room Air 04/30/23 15:41 Care Plan Goal for BP management: Vital signs reviewed stable. BMI result Body Mass Index 21.6 Tobacco/Smoking Status: Tobacco use Status Tobacco use date assessed 04/30/23 04/30/23 15:46 Patient Tobacco Use Status Never used Tobacco 04/30/23 15:46 e-Cigarette/Vaping Use Never Used 04/30/23 15:46 Thrive Assessment: Date of Thrive Assessment Date Thrive assessed 04/20/23 04/30/23 15:46 Const Other: Appearance: Alert.? Oriented X3.? No acute distress.? Head: Normocephalic, atraumatic, no step-offs or deformities Eyes: Pupils equal, round and reactive to light.? ENT: Pharynx normal.? Neck: Normal inspection.? Neck supple.? CVS: Normal heart rate and rhythm.? Pulses normal.?+ Systolic murmurr. Respiratory: No respiratory distress.? Breath sounds normal.? Abdomen: Soft and nontender.? Skin: Skin warm and dry.? Normal skin color.? Normal skin turgor.? Extremities: No lower extremity edema.? No calf ttp. 5/5 strength to bilateral upper and lower extremities Back: No midline tenderness, no C-spine tenderness, full range of motion, no CVA tenderness bilaterally Neuro: Oriented X 3.? No motor deficit.? No sensory deficit. CN 2-12 intact Results Reviewed Results Reviewed: WBC 5.5 4.8-10.8 X10*3/uL RBC 4.49 L 4.60-5.80 X10*6/uL HGB 9.2 L 14.0-18.0 g/dl HCT 31.6 L 42.0-52.0 % MCV 70.4 L 80.0-98.0 fL MCH 20.5 L 27.0-33.0 pg MCHC 29.1 L 31.0-36.0 g/dl RDW 28.9 H 11.0-16.0 % PLT 347 160-400 X10*3/uL MPV 8.6 L 9.4-12.4 fL NRBC Pct Auto 0.0 0.0-0.2 /100WBC NRBC Abs Auto 0.000 0.0-0.012 X10*3/uL Assessment and Plan Assessment & Plan (1) Iron deficiency anemia: Comment: Patient will continue to take ferrous fumarate and vitamin-C tablets at home. Patient will get CBC redrawn and 2-3 months. Code(s): D50.9 - Iron deficiency anemia, unspecified Qualifiers: Iron deficiency anemia type: unspecified iron deficiency Qualified Code(s): D50.9 - Iron deficiency anemia, unspecified Plan: Take your medications as prescribed. If you were prescribed antibiotics today, it is important that you take your medication to their entirety, do not skip any doses, do not finish them early. Follow-up with your primary care provider this week. Return to the emergency department with new or worsening symptoms. Such as fevers, chills, chest pain, shortness of breath, nausea, vomiting, dizziness, headache, vision changes, lethargy In case of emergency call 911 (2) Systolic murmur: Comment: Patient has referral to echocardiogram. Systolic murmur likely exacerbated by iron deficiency anemia. Code(s): R01.1 - Cardiac murmur, unspecified (3) Hemangioma: Comment: Patient is to have follow-up with GI in the next couple of weeks. Code(s): D18.00 - Hemangioma unspecified site Qualifiers: Hemangioma site: unspecified site Qualified Code(s): D18.00 - Hemangioma unspecified site Plan Follow-up in 2-3 months for CBC recheck Orders: Orders Complete Blood Count Auto Diff 2 Months Z13.0 - Encounter for screening for diseases of the blood and blood-forming organs and certain disorders involving the immune mechanism Comprehensive Met. Panel 2 Months Z91.89 - Other specified personal risk factors, not elsewhere classified Coding Level of Care Code Est Pt Level 3 (87711) Diagnoses Iron deficiency anemia, unspecified iron deficiency anemia type D50.9 Iron deficiency anemia type: unspecified iron deficiency Systolic murmur R01.1 Hemangioma, unspecified site D18.00 Hemangioma site: unspecified site Time Spent (min) 32
[2023-04-30 15:41] VITALS: BP 126/74; PULSE 88; O2SAT 98; BMI 21.6
== END 2023-04-30 16:18 | disposition home or self-care (01) ==
PROVIDERS: PCP Nurse Practitioner Primary Care; Visit Provider Nurse Practitioner Primary Care
DX: D50.9 Iron deficiency anemia, unspecified (principal); R01.1 Cardiac murmur, unspecified; D18.00 Hemangioma unspecified site
CPT/HCPCS: 99213

== ENCOUNTER → 2023-05-27 07:41 | Outpatient (REF) | payer OTHER, SELFPAY ==
--- NOTE | 2023-05-27 07:46 | CA_ITS ---
Transthoracic Echocardiogram Patient (Last, First, Middle): Ivan Cisneros G Gender: Male Date of : 1960 Age: 62 Procedure Date: 05/27/2023 Procedure Type: Transthoracic Echocardiogram Location: OP Height: 172.72 cm Weight: 67.13 kg BSA: 1.80 m2 Heart Rate: bpm BP: 126 / 68 mmHg Developmental Electronics Assembler: TO Referring MD: Lonnie HICKS Symptoms: R01.1 - Cardiac murmur, unspecified Study Quality: Adequate Conclusions: - Normal left ventricular size, thickness, systolic function, and wall motion. The visually estimated ejection fraction is between 55-60%. Diastolic function is normal for age. Normal GLS -22%. - Normal right ventricular cavity size and systolic function. - There is mild dilatation of the ascending aorta measuring 4.00 cm and mild dilatation of the aortic arch measuring 3.60 cm. Findings Left Ventricle Normal left ventricular size, thickness, systolic function, and wall motion. The visually estimated ejection fraction is between 55-60%. Diastolic function is normal for age. Normal GLS -22%. Right Ventricle Normal right ventricular cavity size and systolic function. Atria The left atrium is normal in size. The right atrium is likely dilated. Aortic Valve Normal aortic valve structure and function. There is no aortic valve stenosis. There is trace (trivial) aortic valve regurgitation. Mitral Valve Normal mitral valve structure and function. There is no mitral valve regurgitation. There is no mitral valve stenosis. Pulmonic Valve The pulmonic valve is normal. There is trace pulmonic valve regurgitation. Tricuspid Valve Normal tricuspid valve structure. There is trace tricuspid valve regurgitation. Normal right atrial pressure. There is no evidence of pulmonary hypertension. Great Vessels There is mild dilatation of the ascending aorta measuring 4.00 cm and mild dilatation of the aortic arch measuring 3.60 cm. The visualized portions of the pulmonary artery and branches are normal. Venous The inferior vena cava is normal in size and collapses greater than 50% with inspiration. Pericardium/Pleural There is no evidence of pericardial effusion. Prior Study Comparison No prior study available for comparison. Measurements 2D Linear Measurements IVSd: 0.93 0.6-0.9/0.6-1.0 cm LVIDd: 4.90 3.9-5.3/4.2-5.9 cm LVIDd Index: 2.72 2.4-3.2/2.2-3.1 cm/m2 LVIDs: 2.81 2.0-3.6 cm LVPWd: 0.85 0.7-1.1 cm LA Diam: 3.30 2.7-3.8/3.0-4.0 cm LAIDs Index: 1.83 1.5-2.3 cm/m2 LV Mass: 186.53 67-162/88-224 g LV Mass Index: 103.63 43-95/49-115 g/m2 LVOT Diam: 2.00 3.0+(-)1.3 cm 2D Systolic Function EF 4C: 55.60 >55% EF 2C: 59.60 >55% EF BiP: 56.70 >55% Mitral Valve MV Pk E: 0.82 MV PK A: 0.85 MV Decel Time: 183.00 E/A: 1.00 E'Lateral: 8.70 E'Medial: 8.16 E/E' Med: 10.00 E/E' Lat: 9.40 PHT: 54.00 MVA PHT: 4.[address]: 4.48 Aortic Valve AoV Pk Gabe: 1.61 AoV Mn Gabe: 1.03 AoV VTI: 0.32 AoV Pk Grad: 10.00 Aov Mn Grad: 5.00 EDISON Cont.VTI: 2.53 LVOT LVOT Pk Gbae: 1.23 LVOT Mn Gabe: 0.88 LVOT VTI: 0.26 LVOT Pk Grad: 6.00 LVOT Mn Grad: 3.00 LVOT Diam: 2.00 LVOT Area: 3.14 Diastolic Function MV Pk E: 0.82 MV Pk A: 0.85 E/A: 1.00 E'Medial: 8.16 E/E' Med: 10.00 E' Laterial: 8.70 E/E' Lat: 9.40 Right Ventricle TAPSE (mm): 28.20 TVS' Gabe: 12.60 Tricuspid Valve TR Pk Gabe: 2.05 TR Pk Grad: 17.00 RA Press: 3.00 RVSP: 20.00 Great Vessels Aorta Sinus of Valsalva: 3.48 2.0-3.5 cm Ao Asc: 4.00 2.1-3.4 cm Ao Arch: 3.60 Updated in Other Vendor System with Status of Final Alexandre Goins MD electronically signed on 05/29/2023 2:16:11 PM with status of Final
== END ==
LOC: HO.CARD 07:41
PROVIDERS: Visit Provider Nurse Practitioner Primary Care
DX: R01.1 Cardiac murmur, unspecified (principal)
CPT/HCPCS: 93306; 93356

== ENCOUNTER → 2023-05-27 07:46 | Outpatient (BNV) | payer OTHER, SELFPAY | PROVIDERS: Visit Provider Internal Medicine Cardiovascular Disease | DX: I71.21 Aneurysm of the ascending aorta, without rupture (principal); I71.22 Aneurysm of the aortic arch, without rupture | CPT/HCPCS: 93306; 93356 ==

== ENCOUNTER 2023-08-13 10:16 | Outpatient (AMB) | payer OTHER, SELFPAY ==
--- NOTE | 2023-08-13 10:33 | A.OFFPC_ITS ---
Vital Signs 08/13/23 10:34 Height 5 ft 8 in Weight 150 lb BMI 22.8 BP 122/76 Blood Pressure Location Rt brachial Position Sitting Pulse 73 Pulse Source Pulse Oximeter Pulse Oximetry (%) 98 Oxygen Delivery Method Room Air Intake Visit Reasons: 3 month follow up/Ok Per Lonnie Licea Note: pt is here for his 3 mo f/u Allergies No Known Allergies Allergy (Verified 08/13/23 11:12) Medication List - Last Reconciled 08/13/23 by KURT Mena ascorbic acid (vitamin C) 250 mg PO BID ferrous sulfate 324 mg PO BIDWM fluticasone propionate 50 mcg/actuation sprays intranasal hydrocortisone acetate (Anusol-HC) 25 mg MO BEDTIME ketoconazole 2% 1 appl topical DAILY pantoprazole 20 mg PO DAILY prednisone 20 mg PO BID Tobacco use date assessed: 08/13/23 Dental Screening Dental Screen Date: 04/14/23 HPI HPI Comments History of Present Illness Details Patient is a 63-year-old male in today for a follow-up visit for anemia. Patient was seen previously 3 months prior for hospital discharge follow-up. Patient had not yet drawn his CBC and CMP, however his previous CBC value had a hemoglobin of 9.2 and hematocrit of 31. Patient reports that he had been taking iron supplements but had since stopped because he ran out of them, but never contacted the office. He has been off of the iron supplements for the past month. He denies any episodes of dizziness, chest pain, shortness a breath, numbness, weakness, nausea, vomiting, diarrhea. Patient has referrals out for Cardiology due to abnormal EKG with right bundle branch block as well as systolic murmur. He has referral out for Urology due to elevated PSA. He has referral out to vascular surgery for a ascending aorta that was found during his inpatient hospital stay. He has referral over Gastroenterology due to hemangioma of liver which was discovered during a CT scan. Patient has been difficult to reach, his phone number has been verified in the office today. He speaks primarily Cantonese. He has been educated that he needs to keep an eye out for phone calls from [facility] as these phone calls are important. Patient was offered to have these appointments made for him while he was in the office today but has declined. Patient will redraw CBC and CMP today after the visit. He will have his iron supplements refilled. [facility] Medical History Unintentional weight loss No pertinent past medical history Surgical History H/O colonoscopy No pertinent past surgical history Family History Mother No problems noted. Father No problems noted. Social History Household Members: Spouse and Family Household Members Other:: 2 Housing: House Do you presently have visiting nurse or other home services: No Alcohol intake: current Alcohol intake frequency: does not drink Patient Tobacco Use Status: Never used Tobacco e-Cigarette/Vaping Use: Never Used service: No Current occupational status: unemployed Cognitive needs: No Hearing needs: No Vision needs: Yes Questionnaire Thrive Questionnaire Date Thrive assessed: 04/20/23 AUDIT C Alcohol Use Questionnaire (AUDIT-C) 1. How often do you have a drink containing alcohol?: Never Total Score: 0 TRISHA-7 AMB Questionnaire TRISHA-7 Date TRISHA - 7 assessed: 04/14/23 Source: Developed by Drs. Mark Greenfield, Marely Hunter, Víctor Alcantar and colleagues, with an educational anatoliy from [employer]. Review of Systems Const All systems reviewed & are unremarkable except as noted in HPI and below Physical exam (Primary Care) Vital Signs: Last Vital Signs Pulse 73 08/13/23 10:34 BP 122/76 08/13/23 10:34 Pulse Ox 98 08/13/23 10:34 Oxygen Delivery Method Room Air 08/13/23 10:34 Care Plan Goal for BP management: Patient's blood pressure is controlled. BMI result Body Mass Index 22.8 Tobacco/Smoking Status: Tobacco use Status Tobacco use date assessed 08/13/23 08/13/23 10:39 Patient Tobacco Use Status Never used Tobacco 08/13/23 10:33 e-Cigarette/Vaping Use Never Used 08/13/23 10:33 Thrive Assessment: Date of Thrive Assessment Date Thrive assessed 04/20/23 08/13/23 10:33 Const Other: Appearance: Alert.? Oriented X3.? No acute distress.? Head: Normocephalic. Eyes: Pupils equal, round and reactive to light.?Conjunctiva normal. ENT: Pharynx erythema, +post nasal drip. Neck: Normal inspection.? Neck supple.? CVS: Normal heart rate and rhythm.? Pulses normal.?+systolic murmur. Respiratory: No respiratory distress.? Breath sounds normal.? Abdomen: Soft and nontender.? Neuro: Oriented X 3.? Assessment and Plan Assessment & Plan (1) Hemangioma of liver: Comment: Patient will be given referral to Gastroenterology. Hemangioma seen from CT scan from inpatient stay. Code(s): D18.03 - Hemangioma of intra-abdominal structures (2) Elevated PSA: Comment: Patient will be given referral to Urology. Code(s): R97.20 - Elevated prostate specific antigen [PSA] (3) Iron deficiency anemia: Comment: Will refill iron supplement as well as obtain CBC today. Code(s): D50.9 - Iron deficiency anemia, unspecified Qualifiers: Iron deficiency anemia type: unspecified iron deficiency Qualified Code(s): D50.9 - Iron deficiency anemia, unspecified (4) Right bundle branch block: Comment: EKG in office had right bundle branch block. Will refer to echocardiogram, will refer to outside salesman. Code(s): I45.10 - Unspecified right bundle-branch block (5) Sinus congestion: Comment: Reports sinus congestion that does not improve with daily allergy medicine. Will give patient fluticasone to be taken as directed, short course of prednisone Code(s): R09.81 - Nasal congestion (6) GERD (gastroesophageal reflux disease): Comment: Patient will be given pantoprazole 20 mg p.o. daily. Code(s): K21.9 - Gastro-esophageal reflux disease without esophagitis Qualifiers: Esophagitis presence: esophagitis presence not specified Qualified Code(s): K21.9 - Gastro-esophageal reflux disease without esophagitis Plan: draw labs Orders: Referrals Urology Referral R97.20 - Elevated prostate specific antigen [PSA] Gastroenterology Referral D18.03 - Hemangioma of intra-abdominal structures Medications: New prednisone 20 mg PO BID 10 tabs 0RF pantoprazole 20 mg PO DAILY 60 tabs 0RF ketoconazole 2% 1 appl topical DAILY 15 grams 0RF Refilled ferrous sulfate 324 mg PO BIDWM 120 tabs 0RF ferrous sulfate 324 mg PO BIDWM 120 tabs 3RF Discontinued omeprazole Discontinued Reason: Doctor's Order 40 mg PO DAILY 90 caps 0RF Coding Level of Care Code Est Pt Level 4 (84572) Diagnoses Hemangioma of liver D18.03 Elevated PSA R97.20 Iron deficiency anemia, unspecified iron deficiency anemia type D50.9 Iron deficiency anemia type: unspecified iron deficiency Right bundle branch block I45.10 Sinus congestion R09.81 Gastroesophageal reflux disease, unspecified whether esophagitis present K21.9 Esophagitis presence: esophagitis presence not specified Time Spent (min) 38
[2023-08-13 10:34] VITALS: BP 122/76; PULSE 73; O2SAT 98; BMI 22.8
== END 2023-08-13 11:22 | disposition home or self-care (01) ==
LOC: HO.HMGC 10:16
PROVIDERS: PCP Nurse Practitioner Primary Care; Visit Provider Nurse Practitioner Primary Care
DX: D18.03 Hemangioma of intra-abdominal structures (principal); R97.20 Elevated prostate specific antigen [PSA]; D50.9 Iron deficiency anemia, unspecified; I45.10 Unspecified right bundle-branch block; R09.81 Nasal congestion; K21.9 Gastro-esophageal reflux disease without esophagitis
CPT/HCPCS: 99214

== ENCOUNTER 2023-08-13 11:18 | Outpatient (REF) | payer OTHER, SELFPAY ==
[2023-08-13 13:10] LABS: MANUAL DIFF FLAG NO
[2023-08-13 13:20] LABS: Basophils Absolute Auto 0.1 X10*3/uL (0.0-0.2); Basophils Percent Auto 0.9 % (0-2); Eosinophils Percent Auto 0.7 % (0-4); Hematocrit 42.2 % (42.0-52.0); Imm Gran Abs Auto 0.01 X10*3/uL (0.00-0.03); Imm Gran Pct Auto 0.2 % (0.0-0.4); Lymphocytes Absolute Auto 2.5 X10*3/uL (1.2-4.9); Lymphocytes Percent Auto 45.6 % (20-40); Mean Corpuscular HGB Conc 33.2 g/dl (31.0-36.0); Mean Corpuscular Hemoglobin 30.8 pg (27.0-33.0); Mean Platelet Volume 9.5 fL (9.4-12.4); Monocytes Absolute Auto 0.6 X10*3/uL (0.1-1.2); Monocytes Percent Auto 10.7 % (2-11); Neutrophils Absolute Auto 2.3 x10*3/uL (2.0-8.3); Neutrophils Percent Auto 41.9 % (45-73); Platelet Count 206 X10*3/uL (160-400); Red Blood Count 4.54 X10*6/uL (4.60-5.80); Red Cell Distribution Width 14.9 % (11.0-16.0); White Blood Count 5.4 X10*3/uL (4.8-10.8)
[2023-08-13 13:35] LABS: Alanine Aminotransferase 33 U/L (0-40); Albumin Level 4.2 g/dL (3.5-5.0); Alkaline Phosphatase 57 U/L (39-117); Anion Gap 12 (12-20); Aspartate Amino Transferase 28 U/L (5-37); Bilirubin Total 0.4 mg/dL (0.0-1.0); Blood Urea Nitrogen 16 mg/dL (9-16); Carbon Dioxide 27 mmol/L (22-29); Chloride 105 mmol/L (96-108); Estimated Glomerular Filt Rate > 60; Glucose Random 88 mg/dL (60-115); Potassium 4.4 mmol/L (3.3-5.1); Sodium 140 mmol/L (135-145); Total Protein 8.3 g/dL (6.5-8.0)
== END 2023-08-13 11:19 | disposition home or self-care (01) ==
LOC: HO.HMGCLDS 11:18
PROVIDERS: PCP Nurse Practitioner Primary Care; Visit Provider Nurse Practitioner Primary Care
DX: Z91.89 Other specified personal risk factors, not elsewhere classified (principal); Z13.0 Encounter for screening for diseases of the blood and blood-forming organs and certain disorders involving the immune mechanism
CPT/HCPCS: 36415; 80053; 85025

== ENCOUNTER 2023-10-13 14:05 | Outpatient (AMB) | payer OTHER, SELFPAY ==
--- NOTE | 2023-10-13 14:06 | MHC.OFFVIS ---
Intake Visit Reasons: elevated PSA Intake Note: New Patient presents for initial visit for Elevated PSA PSA: 6.6 Urology Medications: none Blood Thinner: none Roller Bearing Inspector Required: Yes Roller Bearing Inspector Services: Roller Bearing Inspector Present Roller Bearing Inspector Name: [id number] Technical Spec: Technical Spec offered & declined Accompanied by: Unknown Allergies No Known Allergies Allergy (Verified 10/13/23 20:13) Medication List - Last Reconciled 10/13/23 by JOSH Freedman ferrous sulfate 324 mg PO BIDWM sulfamethoxazole-trimethoprim 800-160 mg (Bactrim DS) 1 tab PO BID 14 days HPI Comments Details: Ivan is a 63-year-old male cantonese speaking patient of Dr. Jj who was accompanied by his significant other at today's office visit. He presents to the office today as a new patient for an elevated PSA. In discussion with the patient and his significant other he reports having followed up with his PCP and having blood work done at which time PSA was noted to be elevated and recommendations were made for urology referral for further assessment evaluation. When asked patient denies any previous family history of prostate cancer. He denies any bothersome urinary issues or concerns. When asked he denies urinary urgency, urinary frequency, incontinence, nocturia, hematuria, dysuria, foul smelling urine, changes to urinary stream, flank pain, fever, and or chills. He is happy with his current voiding parameters. In review of patient's chart it appears PSA 05/08 6.6. We discussed at length potential causes of elevated PSA. Discussed further workup. All questions were answered. ADOLPH performed boggy prostate noted otherwise no nodules or masses palpated. Discussed potential for possible prostatitis. He otherwise offers no other issues or concerns at this time. [facility] Medical History Unintentional weight loss No pertinent past medical history Surgical History H/O colonoscopy No pertinent past surgical history Family History Mother No problems noted. Father No problems noted. Social History Household Members: Spouse and Family Household Members Other:: 2 Housing: House Do you presently have visiting nurse or other home services: No Alcohol intake: current Alcohol intake frequency: does not drink Patient Tobacco Use Status: Never used Tobacco e-Cigarette/Vaping Use: Never Used service: No Current occupational status: unemployed Cognitive needs: No Hearing needs: No Vision needs: Yes Review of Systems Const All systems reviewed & are unremarkable except as noted in HPI and below Physical Exam Const General: cooperative, healthy appearing, comfortable, no acute distress, well developed, alert and awake Nutritional Appearance: thin Orientation/consciousness: patient oriented x3 Limitations: no limitations HEENT Head: Yes normal to inspection, Yes normocephalic and Yes atraumatic Ears: hearing grossly normal bilaterally Eyes General: appearance normal, both eyes and all related structures Neck Neck: Yes normal visual inspection and Yes trachea midline Chest Chest palpation & inspection: normal inspection of the chest Resp Effort & Inspection: normal respiratory effort and able to speak in complete sentences Cardio Rate: regular rate GI Inspection: Yes normal to inspection General: Yes no CVA tenderness Back/Spine/Pelvis Back: no CVA tenderness Skin General skin exam: no rashes or lesions noted Neuro General: patient oriented x3 Extrem General: Yes normal to inspection Psych Appearance: grossly normal and well kempt Mental Status: mental status grossly normal Speech and movement: Normal speech and movement present and Clear speech present Affect: normal affect Attitude: cooperative Thought process: Normal thought process present Thought content: Normal thought content present Insight: Fair insight present (Psych) Judgement: Fair judgement present (Psych) Results AMB Urinalysis, Automated UA Leukoctes 0 Tyrone/uL Last Edit by [employer] on 10/13/23 14:33 UA Nitrite Last Edit by [employer] on 10/13/23 14:33 UA Urobilinogen 0.2 mg/dL Last Edit by [employer] on 10/13/23 14:33 UA Protein 15 mg/dL Last Edit by [employer] on 10/13/23 14:33 UA pH 6.0 Last Edit by [employer] on 10/13/23 14:33 UA Blood 0 Tomas/uL Last Edit by [employer] on 10/13/23 14:33 UA Specific [place]aster 1.020 Last Edit by [employer] on 10/13/23 14:33 UA Ketone Last Edit by Ahsan Buckley on 10/13/23 14:33 UA Bilirubin 0 mg/dL Last Edit by Ahsan Buckley on 10/13/23 14:33 UA Glucose 0 mg/dL Last Edit by Ahsan Buckley on 10/13/23 14:33 Results Reviewed Results Reviewed: Laboratory Last Values Urine pH (Auto) 6.0 10/13/23 14:19 Specific [place]aster (Auto) 1.020 10/13/23 14:19 Urine Protein (Auto) 15 mg/dL 10/13/23 14:19 Glucose (UA)(Auto) 0 mg/dL 10/13/23 14:19 Urine Blood (Auto) 0 Tomas/uL 10/13/23 14:19 Urine Bilirubin (Auto) 0 mg/dL 10/13/23 14:19 Urine Urobilinogen (Auto) 0.2 mg/dL 10/13/23 14:19 Leukocyte Esterase (Auto) 0 Tyrone/uL 10/13/23 14:19 Assessment & Plan Assessment & Plan (1) Elevated PSA: Comment: Patient will be given referral to Urology. Code(s): R97.20 - Elevated prostate specific antigen [PSA] Category: Medical (2) Prostatitis: Code(s): N41.9 - Inflammatory disease of prostate, unspecified Category: Medical Plan In office urinalysis results reviewed with the patient today; as noted above. Discussed at length potential causes of elevated PSA. Discussed potential for prostatitis given boggy prostate noted on ADOLPH. Start Bactrim as discussed and prescribed. Discussed redraw of PSA status post completion of antibiotic therapy in 6-8 weeks. Will obtain retroperitoneal ultrasound for further assessment evaluation. Patient currently denies any bothersome urinary issues or concerns. He reports be happy with current voiding parameters. Follow-up in 2 months with imaging and labs to be completed prior; or sooner with any issues, concerns, and or questions. Orders: Orders AMB Urinalysis Automated Today Z13.9 - Encounter for screening, unspecified PSA,Total (Free>4and<10) 6 Weeks R97.20 - Elevated prostate specific antigen [PSA] US retroperitoneal comp Today N41.9 - Inflammatory disease of prostate, unspecified, R97.20 - Elevated prostate specific antigen [PSA] Medications: New sulfamethoxazole-trimethoprim 800-160 mg (Bactrim DS) 1 tab PO BID 28 tabs 0RF 14 days N39.0 - Urinary tract infection, site not specified Patient Instructions: The patient had an opportunity to ask questions regarding the treatment plan. All questions were answered. Physical exam, labs, and imaging were discussed and reviewed in detail. As well as risks, benefits, and discussion of treatment choices. No major barriers to understanding were identified. The patient expressed understanding and agreement with the above treatment plan. The patient was made aware they should contact our office by phone for worsening of their current condition, the appearance of new symptoms, or with any questions or concerns. Compliance is encouraged with any medications and follow up testing that is ordered. It is a privilege to be allowed the opportunity to participate in? your urological care.? Again, if you have any questions or concerns If you have any questions or concerns please do not hesitate to contact me. The office is [phone]. This note is constructed using voice recognition software. While every effort has been made to ensure accuracy web merchant errors may have been included. Yours sincerely, JOSH Freedman Coding Level of Care Code New Pt Level 4 (06484) Diagnoses Elevated PSA R97.20 Prostatitis N41.9
== END 2023-10-13 15:00 | disposition home or self-care (01) ==
PROVIDERS: PCP Nurse Practitioner Primary Care; Visit Provider Nurse Practitioner Family
DX: R97.20 Elevated prostate specific antigen [PSA] (principal); N41.9 Inflammatory disease of prostate, unspecified; Z13.9 Encounter for screening, unspecified
CPT/HCPCS: 99204

== ENCOUNTER → 2023-10-13 14:05 | Outpatient (BNVA) | payer OTHER, SELFPAY | PROVIDERS: PCP Nurse Practitioner Primary Care; Visit Provider Nurse Practitioner Family | DX: R97.20 Elevated prostate specific antigen [PSA] (principal); N41.9 Inflammatory disease of prostate, unspecified; N39.0 Urinary tract infection, site not specified | CPT/HCPCS: 81003; 99202 ==

== ENCOUNTER 2023-12-25 10:42 | Outpatient (REF) | payer MEDICARE, SELFPAY ==
[2023-12-25 14:21] LABS: PSA,Total (Free>4and<10) 8.97 ng/mL (0.00-4.00)
[2023-12-27 12:09] LABS: Free Prostate Spec Ag 1.1 ng/mL; Percent Free Prostate Spec Ag 14 % (calc) (>25); Prostate Specific Ag Total 7.6 ng/mL (< OR = 4.0)
== END 2023-12-25 10:43 | disposition home or self-care (01) ==
LOC: HO.HMGCLDS 10:42
PROVIDERS: Visit Provider Nurse Practitioner Family
DX: R97.20 Elevated prostate specific antigen [PSA] (principal); Z12.5 Encounter for screening for malignant neoplasm of prostate
CPT/HCPCS: 36415; 84153; 84154

== ENCOUNTER 2023-12-27 15:11 | Outpatient (AMB) | payer MEDICARE, SELFPAY ==
[2023-12-27 15:15] VITALS: BP 124/73; PULSE 110; BMI 22.4
--- NOTE | 2023-12-27 15:15 | MHC.OFFVIS ---
Vital Signs 12/27/23 15:15 Height 5 ft 8 in Weight 147 lb 4.301 oz BMI 22.4 BP 124/73 Blood Pressure Location Lt brachial Position Sitting Pulse 110 H Intake Visit Reasons: Hemangioma of intra-abdominal structures Intake Note: Patient referred to office for Hemangioma of intra-abdominal structures CC: Patient c/o runny nose, gas, hard dry stools, and occasional blood in stool. Certified Orthotist Required: Yes Certified Orthotist Language: [facility] Certified Orthotist Name: [id number] Lisandra Allergies No Known Allergies Allergy (Verified 12/27/23 15:23) HPI HPI Hemangioma of intra-abdominal structures: Details: 63 year old Cantonese speaking male here for f/u for hx of severe anemia. RECAP: Pt reported had been feeling weak and dizzy intermittently for about 3-4 years. He was noted to have microcytic anemia He had in patient EGD and colonoscopy- no cause for his anemia was found Other tests: Chest CT : enlarged heart, small pericardial effusion, and subsegmental atelectasis with normal appearing esophagus. CT abd/pelvis shows 5cm liver lesion, likely hemangioma, ECHO- good, nml EF, mild aortic aneurysm INTERIM: normal stools, no blood, no melena denies abdominal pain appetite is good weight stable no longer anemic, not taking iron med he has bloating and gas symptoms, EXAM: GENERAL: The patient is well developed and nontoxic. VITAL SIGNS:see workflow HEENT: Nonicteric sclerae, PERRLA, EOMI. Oropharynx clear. Moist mucous membranes. Conjunctivae appear well perfused. No thyroid mass. CHEST: Chest wall is nontender. HEART: Regular rate and rhythm without murmurs. LUNGS: Clear to auscultation bilaterally. ABDOMEN: Soft, positive bowel sounds, nontender, no organomegaly.no flank tenderness SKIN: No rash, no excessive bruising, petechiae, or purpura. NEUROLOGIC: Cranial nerves II-XII intact without motor/sensory deficit. Psych: normal affect A/P: 1/ Microcytic anemia, no obvious etiology on endoscopy , seems to have improved with iron treatment, UA was nml 2/ bloating possible SIBO PLAN: 1/ trial of rifaximin 2/ recommended capsule but he declined 3/ also sent flonase and anti histamine for rhinitis symptoms [facility] Medical History Unintentional weight loss No pertinent past medical history Surgical History H/O colonoscopy No pertinent past surgical history Family History Mother No problems noted. Father No problems noted. Social History Household Members: Spouse and Family Household Members Other:: 2 Housing: House Do you presently have visiting nurse or other home services: No Alcohol intake: current Alcohol intake frequency: does not drink Patient Tobacco Use Status: Never used Tobacco e-Cigarette/Vaping Use: Never Used service: No Current occupational status: unemployed Cognitive needs: No Hearing needs: No Vision needs: Yes Physical Exam Vital Signs: BMI result Body Mass Index 22.4 Assessment & Plan Assessment & Plan (1) Iron deficiency anemia: Comment: Will refill iron supplement as well as obtain CBC today. Code(s): D50.9 - Iron deficiency anemia, unspecified Category: Medical Qualifiers: Iron deficiency anemia type: unspecified iron deficiency Qualified Code(s): D50.9 - Iron deficiency anemia, unspecified Plan: see above Medications: New rifaximin 550 mg PO TID 2 weeks 42 tabs 0RF fluticasone propionate 50 mcg/actuation (Flonase Allergy Relief) administer into each nostril 1 spray intranasal BID 16 grams 0RF fexofenadine (Allergy Relief (fexofenadine)) 180 mg PO DAILY 30 tabs 0RF Coding Level of Care Code Est Pt Level 4 (02356) Diagnoses Iron deficiency anemia, unspecified iron deficiency anemia type D50.9 Iron deficiency anemia type: unspecified iron deficiency
== END 2023-12-27 15:39 | disposition home or self-care (01) ==
PROVIDERS: Visit Provider Internal Medicine Gastroenterology
DX: D50.9 Iron deficiency anemia, unspecified (principal)
CPT/HCPCS: 99214

== ENCOUNTER → 2023-12-27 15:11 | Outpatient (BNVA) | payer MEDICARE, SELFPAY | PROVIDERS: Visit Provider Internal Medicine Gastroenterology | DX: D50.9 Iron deficiency anemia, unspecified (principal) | CPT/HCPCS: 99212 ==

== ENCOUNTER 2024-02-15 11:25 | Outpatient (REF) | payer MEDICARE, SELFPAY ==
[2024-02-15 16:16] LABS: MANUAL DIFF FLAG NO
[2024-02-15 16:28] LABS: Basophils Absolute Auto 0.1 X10*3/uL (0.0-0.2); Basophils Percent Auto 0.8 % (0-2); Eosinophils Absolute Auto 0.1 X10*3/uL (0.0-0.4); Eosinophils Percent Auto 0.9 % (0-4); Hemoglobin 14.5 g/dl (14.0-18.0); Imm Gran Abs Auto 0.02 X10*3/uL (0.00-0.03); Imm Gran Pct Auto 0.3 % (0.0-0.4); Lymphocytes Absolute Auto 2.9 X10*3/uL (1.2-4.9); Lymphocytes Percent Auto 39.7 % (20-40); Mean Corpuscular HGB Conc 33.7 g/dl (31.0-36.0); Mean Corpuscular Hemoglobin 33.1 pg (27.0-33.0); Mean Corpuscular Volume 98.2 fL (80.0-98.0); Mean Platelet Volume 9.5 fL (9.4-12.4); Monocytes Absolute Auto 0.5 X10*3/uL (0.1-1.2); Monocytes Percent Auto 7.3 % (2-11); Neutrophils Absolute Auto 3.8 x10*3/uL (2.0-8.3); Platelet Count 214 X10*3/uL (160-400); Red Blood Count 4.38 X10*6/uL (4.60-5.80); Red Cell Distribution Width 13.1 % (11.0-16.0); White Blood Count 7.4 X10*3/uL (4.8-10.8)
[2024-02-15 18:00] LABS: Iron 98 mcg/dL (45-160); Percent Iron Saturation 37 % (15-50); Total Iron Binding Capacity 263 mcg/dL (228-428); Unsaturated Iron Binding 165 ug/dL
== END 2024-02-15 11:26 | disposition home or self-care (01) ==
LOC: HO.HMGCLDS 11:25
PROVIDERS: Visit Provider Internal Medicine
DX: J30.9 Allergic rhinitis, unspecified (principal); D50.9 Iron deficiency anemia, unspecified; Z86.2 Personal history of diseases of the blood and blood-forming organs and certain disorders involving the immune mechanism
CPT/HCPCS: 36415; 83540; 85025; 99212

== ENCOUNTER 2024-02-15 11:25 | Outpatient (AMB) | payer MEDICARE, SELFPAY ==
[2024-02-15 12:09] VITALS: BP 128/74; PULSE 97; O2SAT 98; BMI 23.1
--- NOTE | 2024-02-15 12:09 | A.OFFPC_ITS ---
Vital Signs 02/15/24 12:09 Height 5 ft 8 in Weight 152 lb BMI 23.1 BP 128/74 Blood Pressure Location Lt brachial Position Sitting Pulse 97 Pulse Source Pulse Oximeter Pulse Oximetry (%) 98 Oxygen Delivery Method Room Air Intake Visit Reasons: Transfer from [facility] Intake Note: Pt is here today as a transfer from [facility] Manager Play Required: Yes Manager Play Language: Mandarin Persian Information Interpreted: clinical only Accompanied by: Spouse Allergies No Known Allergies Allergy (Verified 02/15/24 12:42) Medication List - Last Reconciled 02/15/24 by Ciarra Mackenzie MD No Known Home Meds Tobacco use date assessed: 02/15/24 Fall risk assessment: No Falls in past year Last assessed Fall Risk: 02/15/24 Dental Screening Dental Screen Date: 02/15/24 Did you have a dental visit in the last 12 months?: No Did you have a dental problem in the last 6 months where you did not have access to dental care?: No Was dental information given to patient?: Patient declined HPI Transfer from [facility]/Cardiac Mur[facility] HPI Details 63-year-old male, new to [place], here to [facility] with a new PCP. Patient was told that he had a cardiac murmur, but echocardiogram done 05/27/2023 showed normal left ventricular size, thickness, systolic function, andwall motion, LVEF is between 55-60%. Diastolic function is normal fo r age. Normal GLS -22%.- Normal right ventricular cavity size and systolic function. There is mild dilatation of the ascending aorta measuring 4.00 cm and mild dilatation of the aortic arch measuring 3.60 cm. No valvular dysfunction seen except for trace tricuspid regurgitation. Patient denies any chest pain, no shortness of breath or palpitations. He however complains of persistent nasal congestion, runny nose and postnasal drainage. Currently not taking any medications for these symptoms. Denies any cough, no fever, no shortness of or sore throat reported. He was seen by Dr. Lazaro and prescribed fexofenadine and Flonase, but patient states none of these were has helping . He has history of iron-deficiency anemia with no source of bleeding seen on upper endoscopy done by Dr. Lazaro, placed on iron supplements with normalization of hemoglobin hematocrit noted. [facility] Medical History Elevated PSA Hx of iron deficiency anemia Surgical History H/O colonoscopy Family History Mother No problems noted. Father No problems noted. Social History Household Members: Spouse and Family Household Members Other:: 2 Housing: House Do you presently have visiting nurse or other home services: No Alcohol intake: current Alcohol intake frequency: does not drink Patient Tobacco Use Status: Never used Tobacco e-Cigarette/Vaping Use: Never Used service: No Current occupational status: unemployed Cognitive needs: No Hearing needs: No Vision needs: No Questionnaire Thrive Questionnaire Date Thrive assessed: 04/20/23 TRISHA-7 AMB Questionnaire TRISHA-7 Date TRISHA - 7 assessed: 04/14/23 Source: Developed by Drs. Mark Greenfield, Marely Hunter, Víctor Alcantar and colleagues, with an educational anatoliy from [employer] Review of Systems Const Denies body aches, Denies fatigue, Denies fever(s), Denies headache(s) and Denies weakness Eyes Denies change in vision ENT Reports as per HPI, Denies dizziness, Denies headache(s) and Denies sore throat Card Denies chest pain, Denies lightheadedness, Denies palpitations and Denies dyspnea Resp Denies chest congestion, Denies cough, Denies dyspnea and Denies wheezing GI Denies abdominal pain, Denies change in bowel habits and Denies heartburn Denies hematuria, Denies difficulty urinating, Denies dysuria, Denies urinary frequency and Denies urinary urgency Musc Reports no additional complaints Neuro Denies dizziness, Denies headache(s) and Denies weakness Endo Denies fatigue, Denies polydipsia, Denies polyuria and Denies palpitations Aquiles/Lymph Denies easy bruising Aller/Immun Reports as per HPI and Denies wheezing Physical exam (Primary Care) Vital Signs: Last Vital Signs Pulse 97 02/15/24 12:09 BP 128/74 02/15/24 12:09 Pulse Ox 98 02/15/24 12:09 Oxygen Delivery Method Room Air 02/15/24 12:09 BMI result Body Mass Index 23.1 Tobacco/Smoking Status: Tobacco use Status Tobacco use date assessed 02/15/24 02/15/24 12:12 Patient Tobacco Use Status Never used Tobacco 02/15/24 12:10 e-Cigarette/Vaping Use Never Used 02/15/24 12:10 Thrive Assessment: Date of Thrive Assessment Date Thrive assessed 04/20/23 02/15/24 12:10 Const General: comfortable, no acute distress and alert Orientation/consciousness: patient oriented x3 HENMT Ears: external ears normal General nose exam: Normal external nose present and No nasal discharge present Mouth: Normal oral and palatal mucosa present, oropharynx normal and moist mucous membranes Eyes General: appearance normal, both eyes and all related structures Conjunctivae: conjunctivae normal Sclerae: sclerae normal Pupils: Equal, round and reactive pupils present EOM: EOMs intact bilaterally Neck Neck: Yes full ROM, Yes no lymphadenopathy and Yes supple Resp Effort & Inspection: normal respiratory effort and able to speak in complete sentences Auscultation: clear to auscultation bilaterally Cardio Rate: regular rate Rhythm: regular rhythm Heart sounds: S1 normal heart sound present and S2 normal heart sound present GI Palpation (GI): Soft to palpation, nontender and no masses Auscultation: normal bowel sounds Back/Spine/Pelvis Back: No back tenderness Skin General skin exam: no rashes or lesions noted Neuro General: patient oriented x3, gait normal, tone normal, moves all extremities, Normal light touch and pain sensation and no focal motor deficits Cranial nerves: Yes CN's II-XII intact bilaterally and Yes Equal, round and reactive pupils present Cognition (Neuro): normal cognition Extrem General: Yes full ROM, Yes no joint enlargement, Yes no clubbing, cyanosis or edema and Yes no calf tenderness Coding Level of Care Code Est Pt Level 4 (77790) Diagnoses Rhinitis, allergic J30.9 Hx of iron deficiency anemia Z86.2 Assessment & Plan Assessment & Plan (1) Rhinitis, allergic: Code(s): J30.9 - Allergic rhinitis, unspecified Plan: Patient states his tried fexofenadine and Claritin and Flonase nasal spray all of which has not helped. Will try him on levo cetirizine 5 mg to take 1 tablet at bedtime as needed for nasal congestion or runny nose. (2) Hx of iron deficiency anemia: Code(s): Z86.2 - Personal history of diseases of the blood and blood-forming organs and certain disorders involving the immune mechanism Category: Medical Plan: Recheck CBC and iron profile Orders: Orders IRON PROFILE 02/15/24 D50.9 - Iron deficiency anemia, unspecified Complete Blood Count Auto Diff 02/15/24 D50.9 - Iron deficiency anemia, unspecified Medications: New levocetirizine 5 mg PO QPM PRN 30 tabs 0RF allergy symptoms
== END 2024-02-15 13:19 | disposition home or self-care (01) ==
PROVIDERS: PCP Nurse Practitioner Primary Care; Visit Provider Internal Medicine
DX: J30.9 Allergic rhinitis, unspecified (principal); Z86.2 Personal history of diseases of the blood and blood-forming organs and certain disorders involving the immune mechanism

== ENCOUNTER 2024-06-24 12:32 | Outpatient (AMB) | payer MEDICARE, SELFPAY ==
--- NOTE | 2024-06-24 13:01 | AM.OFFWIN_ITS ---
Intake Vital Signs 06/24/24 13:02 Height 5 ft 8 in Weight 156 lb BMI 23.7 BP 114/70 Blood Pressure Location Lt brachial Position Sitting Respiration 16 Pulse 96 Pulse Source Pulse Oximeter Temp 97.7 F Temp Source Oral Pulse Oximetry (%) 97 Oxygen Delivery Method Room Air Intake Visit Reasons: EP-both hands nail fungus Intake Note: Pt is here today c/o bilateral hands nail fungus Patient Tobacco Use Status: Never used Tobacco Allergies No Known Allergies Allergy (Verified 06/24/24 13:02) HPI EP-both hands nail fungus HPI Details Patient is concerned regarding a nail fungal infection. His says she has nail fungal infections of her toenails and was given terbinafine tablets. PFSH Medical History Elevated PSA Hx of iron deficiency anemia Surgical History H/O colonoscopy Family History Mother No problems noted. Father No problems noted. Social History Household Members: Spouse and Family Household Members Other:: 2 Housing: House Do you presently have visiting nurse or other home services: No Alcohol intake: current Alcohol intake frequency: does not drink Patient Tobacco Use Status: Never used Tobacco e-Cigarette/Vaping Use: Never Used service: No Current occupational status: unemployed Cognitive needs: No Hearing needs: No Vision needs: No Review of Systems Const Denies chills, Denies fatigue, Denies fever(s), Denies headache(s) and Denies weakness ENT Denies dizziness and Denies headache(s) Card Denies dyspnea Resp Denies cough, Denies dyspnea, Denies wheezing and Denies other ( shortness of breath) Musc Denies numbness and Denies tingling Skin/Breast Details: Broken and brittle nails Neuro Denies dizziness, Denies headache(s), Denies numbness, Denies tingling, Denies paresthesias and Denies weakness Psych Denies anxiety and Denies depression Endo Denies fatigue Aller/Immun Denies wheezing Physical Exam Vital Signs: Last Vital Signs Temp 97.7 F 06/24/24 13:02 Pulse 96 06/24/24 13:02 Resp 16 06/24/24 13:02 BP 114/70 06/24/24 13:02 Pulse Ox 97 06/24/24 13:02 Oxygen Delivery Method Room Air 06/24/24 13:02 BMI result Body Mass Index 23.7 Const General: no acute distress and well developed Nutritional Appearance: well nourished Orientation/consciousness: patient oriented x3 HEENT Head: Yes normocephalic and Yes atraumatic Eyes General: appearance normal, both eyes and all related structures Pupils: Equal, round and reactive pupils present EOM: EOMs intact bilaterally Resp Effort & Inspection: normal respiratory effort Skin Other: numerous broken and brittle nails with pitting no periungual inflammation or maceration Neuro General: patient oriented x3 and gait normal Cranial nerves: Yes Equal, round and reactive pupils present Psych Affect: normal affect Assessment & Plan Assessment & Plan (1) Brittle nails: Code(s): L60.3 - Nail dystrophy (2) Nail pitting: Code(s): L60.8 - Other nail disorders Plan discussed with patient that this appears more likely to be a nail psoriasis than a fungal infection. We discussed that using oral terbinafine should be started by a PCP or radiotelegraph operator to can follow his liver enzymes and progress of treatment. Will give him a combination cream that could help also advised an OTC moisturizing cream with no dyes or perfumes for hands and nails Medications: New clotrimazole-betamethasone 1-0.05 % 1 appl topical BID 2 weeks 45 grams 1RF Coding Level of Care Code Est Pt Level 3 (67193) Diagnoses Brittle nails L60.3 Nail pitting L60.8
[2024-06-24 13:02] VITALS: BP 114/70; PULSE 96; RESP 16; TEMP 36.5; O2SAT 97; BMI 23.7
== END 2024-06-24 15:09 | disposition home or self-care (01) ==
PROVIDERS: PCP Nurse Practitioner Primary Care; Visit Provider Family Medicine
DX: L60.3 Nail dystrophy (principal); L60.8 Other nail disorders

== ENCOUNTER → 2024-06-24 12:32 | Outpatient (BNVA) | payer MEDICARE, SELFPAY | PROVIDERS: PCP Nurse Practitioner Primary Care; Visit Provider Family Medicine | DX: L60.3 Nail dystrophy (principal); L60.8 Other nail disorders | CPT/HCPCS: 99212 ==